=== PATIENT | male | born 1990 | race Caucasian/White ===

== ENCOUNTER 2017-03-22 07:23 | Inpatient (IN) | payer MEDICAID ==
[2017-03-22] MEDS ORDERED: Dextrose 50% 50 mL Abboject IVP ONE (07:32)
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
[2017-03-22] MEDS ORDERED: Dextrose 50% 50 mL Abboject IVP STA (07:37)
[2017-03-22] MEDS ORDERED: D5-0.9NS w/KCL 20mEq 1,000 ML IV ONE ×2 (07:39→07:40)
[2017-03-22 08:15] LABS: ALB/GLOB RATIO 1.5 (1.0-1.8); ALKALINE PHOSPHATASE 46 U/L (34-104); ANION GAP 7.6 (7.0-16.0); BILIRUBIN,TOTAL 0.5 mg/dL (0.3-1.0); BUN - UREA NITROGEN 14 mg/dL (7-25); BUN/CREATININE RATIO 17.5; CALCIUM SERUM 8.3 mg/dL (8.6-10.3); CHLORIDE 105 mEq/L (98-107); CREATININE - SERUM 0.8 mg/dL (0.7-1.3); GLUCOSE 130 mg/dL (70-105); POTASSIUM SERUM 3.6 mEq/L (3.5-5.1); SGOT 48 U/L (13-39); SGPT/ALT 40 U/L (7-52); SODIUM SERUM 137 mEq/L (136-145)
[2017-03-22 08:26] LABS: ACETAMINOPHEN < 10.0 ug/mL (10.0-30.0)
[2017-03-22 08:33] LABS: % BASOPHILS 0.1 % (0.0-2.0); % EOSINOPHILS 0.4 % (0.0-5.0); % NEUTROPHILS 85.5 % (40.0-80.0); HEMOGLOBIN 14.2 gm/dL (12-16); MEAN CELL VOLUME 97.4 fl (80-99); MEAN CORPUSCULAR HEMOGLOBIN 32.9 pg (26.0-30.0); MEAN CORPUSCULAR HGB CONC 33.8 pg (28.0-36.0); MEAN PLATELET VOLUME 7.9 fl; NEUTROPHILE ABSOLUTE 9.8 Th/cmm (1.8-8.0); PLATELET COUNT 354 Th/cmm (150-400); RED BLOOD COUNT 4.31 Mil/cmm (4.30-5.70); RED CELL DISTRIBUTION WIDTH 12.6 % (11.5-20.0); WHITE BLOOD COUNT 11.4 Th/cmm (4.8-10.8)
[2017-03-22 09:17] LABS: URINE BILIRUBIN NEGATIVE (NEGATIVE); URINE BLOOD NEGATIVE (NEGATIVE); URINE GLUCOSE (UA) 100 mg/dL (NEGATIVE); URINE KETONE NEGATIVE (NEGATIVE); URINE PH 5.5 (4.6 - 8.0); URINE PROTEIN NEGATIVE (NEGATIVE); URINE UROBILINOGEN 0.2 E.U./dL (0.2 - 1.0)
[2017-03-22 09:28] LABS: URINE COLOR YELLOW
[2017-03-22 09:30] LABS: AMPHETAMINE URINE POSITIVE (NEGATIVE); BARBITURATES URINE NEGATIVE (NEGATIVE)
[2017-03-22 09:31] LABS: METHADONE URINE NEGATIVE (NEGATIVE)
[2017-03-22 09:34] LABS: URINE BACTERIA NONE SEEN /hpf (NONE SEEN); URINE EPITHELIAL CELLS RARE /lpf (FEW); URINE RBC 0-2 /hpf (0-5); URINE WBC NONE SEEN /hpf (0-5)
--- NOTE | 2017-03-22 09:34 | Diagnostic Imaging Report ---
Lumbar spine (3 views) HISTORY: Pain Alignment is normal. Disc spaces are maintained. No focal lesions. Minimal anterior wedging involves the bodies of T11 and T12. IMPRESSION: 1. No acute abnormalities 2. Minimal anterior wedging involving the bodies of T11 and T12.
[2017-03-22] MEDS: Dextrose 10% 1,000 ML IV SCH (23:03)
[2017-03-23 00:01] VITALS: BP 123/72
[2017-03-23] MEDS: INSULIN ASPART SLIDING SCALE 100 UNITS/ML UNIT SUBQ SCH ×6 (01:56→21:23)
[2017-03-23 05:41] LABS: % BASOPHILS 0.3 % (0.0-2.0); % EOSINOPHILS 6.7 % (0.0-5.0); % LYMPHOCYTES 29.7 % (20.0-50.0); % NEUTROPHILS 54.3 % (40.0-80.0); HEMATOCRIT 42.3 % (41.0-60); HEMOGLOBIN 14.2 gm/dL (12-16); MEAN CELL VOLUME 97.3 fl (80-99); MEAN CORPUSCULAR HEMOGLOBIN 32.8 pg (26.0-30.0); MEAN CORPUSCULAR HGB CONC 33.7 pg (28.0-36.0); NEUTROPHILE ABSOLUTE 4.5 Th/cmm (1.8-8.0); PLATELET COUNT 307 Th/cmm (150-400); RED BLOOD COUNT 4.35 Mil/cmm (4.30-5.70); RED CELL DISTRIBUTION WIDTH 12.6 % (11.5-20.0)
[2017-03-23 05:43] LABS: WHITE BLOOD COUNT 8.4 Th/cmm (4.8-10.8)
[2017-03-23 05:53] LABS: ANION GAP 8.7 (7.0-16.0); BUN - UREA NITROGEN 10 mg/dL (7-25); BUN/CREATININE RATIO 11.1; CALCIUM SERUM 8.6 mg/dL (8.6-10.3); CARBON DIOXIDE 27.3 mEq/L (21.0-31.0); CHLORIDE 104 mEq/L (98-107); CREATININE - SERUM 0.9 mg/dL (0.7-1.3); GLUCOSE 143 mg/dL (70-105); MAGNESIUM 1.8 mg/dL (1.9-2.7); SODIUM SERUM 136 mEq/L (136-145)
[2017-03-23] MEDS ORDERED: INSULIN ASPART SLIDING SCALE 100 UNITS/ML UNIT SUBQ SCH (07:30)
[2017-03-23] MEDS ORDERED: Influenza Vaccine 0.5 mL Syr IM ONE (10:00)
[2017-03-23] MEDS: Dextrose 10% 1,000 ML IV SCH (10:43)
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
[2017-03-23] MEDS ORDERED: Mag Sulfate 2gm/50mL Premix 2 GM/50 ML BAG IV ONE (18:42)
--- NOTE | 2017-03-23 20:49 | History & Physical ---
ADMIT DATE: 03/23/2017 REQUESTING PHYSICIAN: Dr. De La Torre. REASON FOR CONSULTATION: Suicidal gesture. HISTORY OF PRESENT ILLNESS: This patient is a 26-year-old male, currently homeless. Information obtained by directly interviewing the patient as well as reviewing the admission papers as per the information, the patient is reported to have tried to overdose on insulin along with the methamphetamine and the patient is reported to has been brought to the Emergency Room after ____. The patient is reported to have been living in his car and the patient is stating that he does not known. How, he can care for himself and he wanted to end it and hence the patient has been evaluated by the staff and was placed on 5150 as being a danger to self and being gravely disabled and admitted over here for stabilization, tried to interview the patient, but patient has been uncooperative and has been turning to other side, giving very little information what led to his suicidal gestures. PAST PSYCHIATRIC HISTORY: Details are not known. MEDICAL HISTORY: Dr. Garcia is on the case. SUBSTANCE ABUSE HISTORY: The patient has been abusing methamphetamine. Details about other drugs use are not known. LEGAL PROBLEMS: None at this time. STRENGTHS AND ASSETS: The patient seems to be motivated. MENTAL EXAMINATION: The patient is a 26-year-old well built, superficially cooperative. Eye contact is poor. Mood is noted to be irritable. Affect is constricted. Insight and judgment at this time are noted to be still impaired. Impulse control seems to be poor. Coping skills are also noted to be poor. The patient is not providing much of information to me at this time, we will try to get more information. The patient gets more cooperative. The patient at this time is currently maintained on Haldol and Benadryl as needed and the social work case manager is going to be involved in helping the patient with the placement. DIAGNOSTIC IMPRESSION: 1. Depressive disorder, not otherwise specified. 2. Methamphetamine abuse. 3. As per Dr. Garcia. IMMEDIATE TREATMENT PLAN: The patient is going to be continued on the Haldol on a p.r.n. basis. ASSESSMENT: The patient is going to be closely monitored. Once stabilized is going to be discharged to [facility] to be followed up on an outpatient basis. JOB# [id number]
[2017-03-24] MEDS: INSULIN ASPART SLIDING SCALE 100 UNITS/ML UNIT SUBQ SCH ×3 (00:40→08:17)
[2017-03-24] MEDS: Dextrose 10% 1,000 ML IV SCH (03:36)
[2017-03-24 05:24] LABS: % BASOPHILS 0.6 % (0.0-2.0); % EOSINOPHILS 6.2 % (0.0-5.0); % LYMPHOCYTES 22.1 % (20.0-50.0); % MONOCYTES 8.7 % (2.0-10.0); % NEUTROPHILS 62.4 % (40.0-80.0); HEMATOCRIT 43.8 % (41.0-60); HEMOGLOBIN 14.8 gm/dL (12-16); MEAN CELL VOLUME 96.1 fl (80-99); MEAN CORPUSCULAR HEMOGLOBIN 32.4 pg (26.0-30.0); MEAN CORPUSCULAR HGB CONC 33.7 pg (28.0-36.0); MEAN PLATELET VOLUME 7.9 fl; NEUTROPHILE ABSOLUTE 5.7 Th/cmm (1.8-8.0); PLATELET COUNT 330 Th/cmm (150-400); RED BLOOD COUNT 4.56 Mil/cmm (4.30-5.70); RED CELL DISTRIBUTION WIDTH 12.6 % (11.5-20.0); WHITE BLOOD COUNT 9.3 Th/cmm (4.8-10.8)
[2017-03-24 05:57] LABS: ALB/GLOB RATIO 1.4 (1.0-1.8); ALKALINE PHOSPHATASE 68 U/L (34-104); ANION GAP 9.5 (7.0-16.0); BILIRUBIN,TOTAL 0.8 mg/dL (0.3-1.0); BUN - UREA NITROGEN 22 mg/dL (7-25); CALCIUM SERUM 8.7 mg/dL (8.6-10.3); CARBON DIOXIDE 25.9 mEq/L (21.0-31.0); CHLORIDE 102 mEq/L (98-107); GLUCOSE 270 mg/dL (70-105); MAGNESIUM 1.9 mg/dL (1.9-2.7); POTASSIUM SERUM 4.4 mEq/L (3.5-5.1); SGOT 20 U/L (13-39); SGPT/ALT 31 U/L (7-52); SODIUM SERUM 133 mEq/L (136-145)
[2017-03-24] MEDS ORDERED: Insulin Detemir 100 units/mL 10mL Vial SUBQ SCH ×2 (12:00→15:00)
[2017-03-24] MEDS: INSULIN ASPART, RECOMBINANT 100 UNITS/ML SUBQ SCH ×3 (12:38→22:07)
[2017-03-25 05:45] LABS: % EOSINOPHILS 5.6 % (0.0-5.0); % LYMPHOCYTES 26.7 % (20.0-50.0); % MONOCYTES 9.9 % (2.0-10.0); % NEUTROPHILS 56.8 % (40.0-80.0); HEMATOCRIT 46.4 % (41.0-60); HEMOGLOBIN 15.9 gm/dL (12-16); MEAN CELL VOLUME 95.8 fl (80-99); MEAN CORPUSCULAR HEMOGLOBIN 32.8 pg (26.0-30.0); MEAN CORPUSCULAR HGB CONC 34.2 pg (28.0-36.0); MEAN PLATELET VOLUME 7.5 fl; NEUTROPHILE ABSOLUTE 4.3 Th/cmm (1.8-8.0); PLATELET COUNT 363 Th/cmm (150-400); RED BLOOD COUNT 4.84 Mil/cmm (4.30-5.70); RED CELL DISTRIBUTION WIDTH 12.5 % (11.5-20.0); WHITE BLOOD COUNT 7.6 Th/cmm (4.8-10.8)
[2017-03-25 06:09] LABS: ANION GAP 7.8 (7.0-16.0); BUN - UREA NITROGEN 25 mg/dL (7-25); CALCIUM SERUM 9.1 mg/dL (8.6-10.3); CARBON DIOXIDE 30.5 mEq/L (21.0-31.0); CHLORIDE 102 mEq/L (98-107); GLUCOSE 96 mg/dL (70-105); POTASSIUM SERUM 4.3 mEq/L (3.5-5.1); SODIUM SERUM 136 mEq/L (136-145)
[2017-03-25] MEDS: INSULIN ASPART, RECOMBINANT 100 UNITS/ML SUBQ SCH (06:37)
[2017-03-25] MEDS ORDERED: Insulin Detemir 100 units/mL 10mL Vial SUBQ SCH (21:00)
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
== END 2017-03-25 10:15 | disposition left against medical advice (07) | DRG 420 ==
LOC: ER 07:23 → TELE 21:45 → MSI 03-24 14:51
PROVIDERS: ADMIT Internal Medicine; ATTEND Internal Medicine
DX: E11.649 Type 2 diabetes mellitus with hypoglycemia without coma (principal); G93.41 Metabolic encephalopathy; R45.851 Suicidal ideations; F15.10 Other stimulant abuse, uncomplicated; F32.9 Major depressive disorder, single episode, unspecified; Z59.0 Homelessness; Z79.4 Long term (current) use of insulin
CPT/HCPCS: 36415-UA; 72110-TC; 80048-TC; 80053-TC; 80307; 80320-TC; 80329-TC; 81001-TC; 82948-90; 83036-90; 83735-TC; 84443-TC; 85025-TC; 93005; 96374; J1815; J3475; J7799; Z7610

== ENCOUNTER 2017-05-29 19:02 | Emergency (ER) | payer MEDICAID ==
[2017-05-29] MEDS ORDERED: INSULIN HUMAN REGULAR 100 UNITS/ML UNIT SUBQ ONE (19:20)
--- NOTE | 2017-05-29 19:25 | ED Physician Chart ---
ED Chief Complaint/HPI - Patient Information Date Seen:: 05/29/17 Time Seen:: 19:24 Chief Complaint:: Insulin overdose History of Present Illness:: 26 yo male with DM type I, was brought to ER by ambulance. The patient stated that he accidentally overdosed Lantus insulin by about 20 units. He then started drinking large amount of orange juice to try to compensate for possible hypoglycemia. He then began vomiting. He called 911 and asked to be taken to ER. Here at ER, he is alert with agitation. Blood glucose was 101 Allergies:: Allergies Allergy/AdvReac Type Severity Reaction Status Date / Time No Known Allergies Allergy Verified 03/23/17 18:41 Vitals:: Vital Signs - 8 hr 05/29/17 19:13 Temp 97.9 F HR 100 RR 16 BP 118/74 O2 Sat % 96 ED Review of Systems - Review of Systems General/Constitutional: No fever, No chills Skin: No skin lesions Head: No headache Eyes: No loss of vision ENT: No nasal drainage Neck: No neck pain Cardio Vascular: No chest pain Pulmonary: No SOB GI: No nausea, No vomiting Musculoskeletal: No bone or joint pain ED Past Medical History - Past Medical History Past Medical History: DM (Type I) Social History: Smoker, No Alcohol, No Drug Use Surgical History: None Family Medical History - Family Member Mother History Unknown: Yes ED Physical Exam - Physical Examination General/Constitutional: Awake Other Gen/Cons comments:: Verbally aggressive, mild tremor in BUE Head: Atraumatic Eyes: PERRL, EOMI Skin: No ecchymosis ENMT: Nasal exam nl Neck: No nuchal rigidity Respiratory: Clear to Auscultation, No Wheeze/Rhonchi/Rales Cardio Vascular: RRR, No murmur, gallop, rubs, NL S1 S2 GI: No tenderness/rebounding/guarding Extremities: normal strength in all extremities Neuro/Psych: No focal deficits ED Assessment - Assessment General Assessment: DM type I Insulin overdose Critical Care Time: 30 min Excludes all billable procedures: Yes This condition life threatening/high prob of deterioration: No Assessment/Comments:: Accu-Check blood glucose level, q4h Insulin sliding scale, low dose, prn The patient left AMA and signed the AMA form. The patient was informed about developing potential complications including hypoglycemia, altered mental status or . ED Septic Shock - . Is Septic Shock (SBP<90, OR Lactate>4 mmol\L) present?: No - <6hrs of presentation: Vital Signs: Vital Signs - 8 hr 05/29/17 19:13 Temp 97.9 F HR 100 RR 16 BP 118/74 O2 Sat % 96 ED Reassessment (Disposition) - Reassessment Reassessment Condition:: Improved ED Discharge Plan - Patient Disposition Admit/Discharge/Transfer: AGAINST MEDICAL ADVICE
[2017-05-29 19:28] LABS: % BASOPHILS 0.8 % (0.0-2.0); % EOSINOPHILS 3.7 % (0.0-5.0); % LYMPHOCYTES 21.9 % (20.0-50.0); % MONOCYTES 9.5 % (2.0-10.0); % NEUTROPHILS 64.1 % (40.0-80.0); HEMOGLOBIN 14.2 gm/dL (12-16); MEAN CELL VOLUME 96.8 fl (80-99); MEAN CORPUSCULAR HEMOGLOBIN 33.5 pg (26.0-30.0); MEAN CORPUSCULAR HGB CONC 34.6 pg (28.0-36.0); MEAN PLATELET VOLUME 7.4 fl; NEUTROPHILE ABSOLUTE 5.6 Th/cmm (1.8-8.0); RED BLOOD COUNT 4.23 Mil/cmm (4.30-5.70); RED CELL DISTRIBUTION WIDTH 12.1 % (11.5-20.0); WHITE BLOOD COUNT 8.7 Th/cmm (4.8-10.8)
[2017-05-29 19:29] LABS: PLATELET COUNT 523 Th/cmm (150-400)
[2017-05-29] MEDS ORDERED: INSULIN HUMAN REGULAR 100 UNITS/ML UNIT SUBQ SCH ×2 (19:30→21:15)
[2017-05-29 19:48] LABS: ALB/GLOB RATIO 1.5 (1.0-1.8); ALKALINE PHOSPHATASE 70 U/L (34-104); ANION GAP 10.7 (7.0-16.0); BILIRUBIN,TOTAL 0.9 mg/dL (0.3-1.0); BUN - UREA NITROGEN 15 mg/dL (7-25); BUN/CREATININE RATIO 16.7; CALCIUM SERUM 9.2 mg/dL (8.6-10.3); CARBON DIOXIDE 26.9 mEq/L (21.0-31.0); CHLORIDE 104 mEq/L (98-107); CREATININE - SERUM 0.9 mg/dL (0.7-1.3); GLUCOSE 87 mg/dL (70-105); POTASSIUM SERUM 3.6 mEq/L (3.5-5.1); SGOT 38 U/L (13-39); SGPT/ALT 45 U/L (7-52); SODIUM SERUM 138 mEq/L (136-145)
[2017-05-29] MEDS ORDERED: Dextrose 50% 50 mL Abboject IVP STA (20:54)
== END 2017-05-29 21:35 | disposition left against medical advice (07) ==
LOC: ER 19:02
DX: T85.694A Other mechanical complication of insulin pump, initial encounter (principal); T38.3X1A Poisoning by insulin and oral hypoglycemic [antidiabetic] drugs, accidental (unintentional), initial encounter; E10.9 Type 1 diabetes mellitus without complications
CPT/HCPCS: 36415-UA; 80053-TC; 82948-90; 83036-90; 85025-TC; Z7502

== ENCOUNTER 2017-09-30 07:20 | Emergency (ER) | payer MEDICAID ==
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
== END 2017-09-30 08:10 | disposition still patient (30) ==
LOC: ER 07:20
DX: S00.01XA Abrasion of scalp, initial encounter (principal); S00.81XA Abrasion of other part of head, initial encounter; X58.XXXA Exposure to other specified factors, initial encounter; Z02.89 Encounter for other administrative examinations; Y93.89 Activity, other specified; Y92.89 Other specified places as the place of occurrence of the external cause; Y99.8 Other external cause status
CPT/HCPCS: 82948-90; Z7502

== ENCOUNTER 2018-01-17 04:57 | Emergency (ER) | payer MEDICAID ==
[2018-01-17] MEDS ORDERED: Acetaminophen 500 MG TAB PO ONE (05:24)
[2018-01-17] MEDS ORDERED: Acetaminophen 500 MG TAB ONE (05:36)
[2018-01-17] MEDS ORDERED: Sodium Chloride 0.9% 1,000 ML IV ONE ×2 (05:38→06:54)
--- NOTE | 2018-01-17 05:40 | ED Physician Chart ---
ED Chief Complaint/HPI - Patient Information Date Seen:: 01/17/18 Time Seen:: 05:15 Chief Complaint:: bilateral foot pain History of Present Illness:: THIS IS A 27 YO MALE DIABETIC WHO HAS BEEN HERE MULTIPLE TIMES. THIS MORNING HE IS CONCERNED ABOUT HIS FOOT PAIN AND STATES THAT HE IS HOMELESS AND DENIES USING DRUGS. HE DENIES ALL OTHER MEDICAL PROBLEMS EXCEPT FOR BILATERAL FOOT PAIN. HE STATES THAT HE HAS HAD A RECENT TETANUS SHOT. Allergies:: Allergies Allergy/AdvReac Type Severity Reaction Status Date / Time No Known Allergies Allergy Verified 01/17/18 05:06 Vitals:: Vital Signs - 8 hr 01/17/18 05:00 Temp 98.1 F HR 87 RR 20 BP 128/81 O2 Sat % 98 Historian:: Patient Review:: Old Chart Reviewed ED Review of Systems - Review of Systems General/Constitutional: No fever, No chills, No weight loss, No weakness, No diaphoresis, No edema, No loss of appetite Skin: No skin lesions, No rash, No bruising Head: No headache, No light-headedness Eyes: No loss of vision, No pain, No diplopia ENT: No earache, No nasal drainage, No sore throat, No tinnitus Neck: No neck pain, No swelling, No thyromegaly, No stiffness, No mass noted Cardio Vascular: No chest pain, No palpitations, No PND, No orthopnea, No edema Pulmonary: No SOB, No cough, No sputum, No wheezing GI: No nausea, No vomiting, No diarrhea, No pain, No melena, No hematochezia, No constipation, No hematemesis G/U: No dysuria, No frequency, No hematuria Musculoskeletal: No bone or joint pain, No back pain, No muscle pain, Other ( BILATERAL FOOT PAIN) Endocrine: No polyuria, No polydipsia Psychiatric: No prior psych history, No depression, No anxiety, No suicidal ideation Hematopoietic: No bruising, No lymphadenopathy Allergic/Immuno: No urticaria, No angioedema Neurological: No syncope, No focal symptoms, No weakness, No paresthesia, No headache, No seizure, No dizziness, No confusion, No vertigo ED Past Medical History - Past Medical History Obtainable: Yes Past Medical History: DM, Other (MENTAL DISORDER, DRUG ABUSE) Family History: None Social History: Non Smoker, No Alcohol, Illicit Drug Use, Homeless Surgical History: other (SUB MENTUM GLAND SURGERY) Psychiatricy History: Depression Medication: Reviewed Family Medical History - Family Member Mother History Unknown: Yes Ethnicity: Non- Living Status: Still Living Hx Family Cancer: No Hx Family Coronary Artery Disease: No Hx Family Congestive Heart Failure: No Hx Family Hypertension: No Hx Family Stroke: No Hx Family Diabetes: No Hx Family Seizures: No Hx Family Dementia: No Hx Family AIDS: No Hx Family HIV: No Hx Family COPD: No Hx Family Hepatitis: No Hx Family Psychiatric Problems: No Hx Family Tuberculosis: No ED Physical Exam - Physical Examination General/Constitutional: Awake, Well-developed, well-nourished, Alert, No distress, GCS 15, Non-toxic appearing, Ambulatory Head: Atraumatic Eyes: Lids, conjuctiva normal, PERRL, EOMI Skin: Nl inspection, No rash, No skin lesions, No ecchymosis, Well hydrated, No lymphadenopathy ENMT: External ears, nose nl, Nasal exam nl, Lips, teeth, gums nl Neck: Nontender, Full ROM w/o pain, No JVD, No nuchal rigidity, No bruit, No mass, No stridor Respiratory: Nl effort/Exclusion, Clear to Auscultation, No Wheeze/Rhonchi/Rales Cardio Vascular: RRR, No murmur, gallop, rubs, NL S1 S2 GI: No tenderness/rebounding/guarding, No organomegaly, No hernia, Normal BS's, Nondistended, No mass/bruits, No McBurney tenderness : No CVA tenderness Extremities: No tenderness or effusion, Full ROM, normal strength in all extremities, No edema, Normal digits & nails Other Extremities comments:: RIGHT FOOT HAS AN OPEN ABRASION ON THE BIG TOE THERE IS NO EDEMA OF THE FEET. THERE ARE MULTIPLE INSECT BITE OVER BOTH LOWER LEGS. Neuro/Psych: Alert/oriented, DTR's symmetric, Normal sensory exam, Normal motor strength, Judgement/insight normal, Mood normal, Normal gait, No focal deficits Misc: Normal back, No paraspinal tenderness ED Labs/Radiology/EKG Results - Lab Results Results: Abnormal Lab Results 01/17/18 01/17/18 01/17/18 05:10 05:10 05:30 WBC 8.8 RBC 4.17 L Hgb 13.7 Hct 40.2 L MCV 96.4 MCH 33.0 H MCHC Differential 34.2 RDW 13.7 Plt Count 317 MPV 8.1 Neutrophils % 77.8 Lymphocytes % 11.8 L Monocytes % 6.9 Eosinophils % 2.3 Basophils % 1.2 Sodium Potassium Chloride Carbon Dioxide Anion Gap BUN Creatinine Est GFR ( Amer) Est GFR (Non-Af Amer) BUN/Creatinine Ratio Glucose Calcium Total Bilirubin AST ALT Alkaline Phosphatase Troponin I Total Protein Albumin Globulin Albumin/Globulin Ratio Urine Source CLEAN C Urine Color YELLOW Urine Clarity CLEAR Urine pH 7.0 Ur Specific [place] <= 1.005 Urine Protein NEGATIVE Urine Glucose (UA) >=1000 H Urine Ketones NEGATIVE Urine Blood NEGATIVE Urine Nitrate NEGATIVE Urine Bilirubin NEGATIVE Urine Urobilinogen 0.2 Ur Leukocyte Esterase NEGATIVE Urine RBC 0-2 H Urine WBC 0-2 Ur Epithelial Cells OCCASIONAL Urine Bacteria OCCASIONAL Urine Opiates Screen NEGATIVE Urine Methadone Screen NEGATIVE Ur Barbiturates Screen NEGATIVE Ur Tricyclics Screen NEGATIVE Ur Phencyclidine Scrn NEGATIVE Amphetamines Screen NEGATIVE U Methamphetamines Scrn POSITIVE H U Benzodiazepines Scrn NEGATIVE U Cocaine Metab Screen NEGATIVE U Cannabinoids Screen NEGATIVE Ethyl Alcohol 01/17/18 01/17/18 01/17/18 05:30 05:30 05:30 WBC RBC Hgb Hct MCV MCH MCHC Differential RDW Plt Count MPV Neutrophils % Lymphocytes % Monocytes % Eosinophils % Basophils % Sodium 125 L Potassium 4.6 Chloride 89 L Carbon Dioxide 25.3 Anion Gap 15.3 BUN 22 Creatinine 1.2 Est GFR ( Amer) > 60.0 Est GFR (Non-Af Amer) > 60.0 BUN/Creatinine Ratio 18.3 Glucose 749 H* Calcium 9.1 Total Bilirubin 2.6 H AST 428 H ALT 184 H Alkaline Phosphatase 141 H Troponin I 0.01 Total Protein 6.8 Albumin 4.2 Globulin 2.6 Albumin/Globulin Ratio 1.6 Urine Source Urine Color Urine Clarity Urine pH Ur Specific [place] Urine Protein Urine Glucose (UA) Urine Ketones Urine Blood Urine Nitrate Urine Bilirubin Urine Urobilinogen Ur Leukocyte Esterase Urine RBC Urine WBC Ur Epithelial Cells Urine Bacteria Urine Opiates Screen Urine Methadone Screen Ur Barbiturates Screen Ur Tricyclics Screen Ur Phencyclidine Scrn Amphetamines Screen U Methamphetamines Scrn U Benzodiazepines Scrn U Cocaine Metab Screen U Cannabinoids Screen Ethyl Alcohol < 10 ED Assessment - Assessment General Assessment: DRUG ABUSE DIABETES MELLITUS ABRASION OF THE RIGHT BIG TOE ED Septic Shock - . Is Septic Shock (SBP<90, OR Lactate>4 mmol\L) present?: No - <6hrs of presentation: Vital Signs: Vital Signs - 8 hr 01/17/18 05:00 Temp 98.1 F HR 87 RR 20 BP 128/81 O2 Sat % 98 ED Reassessment (Disposition) - Reassessment Reassessment Condition:: Improved - Diagnosis Diagnosis:: DIABETES MELLITUS DRUG ABUSE (METH) RIGHT BIG TOE ABRASION - Aftercare/Follow up Instructions Aftercare/Follow-Up Instructions:: Counseled pt regarding lab results/diagnosis & need follow up, Refer to Discharge Instructions, Counseled pt & family regarding lab results/diagnosis & need follow up - Patient Disposition Discharge/Transfer:: Home Condition at Disposition:: Improved ED Discharge Plan - Patient Disposition Admit/Discharge/Transfer: PT DISCHARGED HOME Condition at Disposition: Improved
[2018-01-17] MEDS ORDERED: INSULIN HUMAN REGULAR 100 UNITS/ML UNIT SUBQ ONE ×2 (05:43)
[2018-01-17] MEDS ORDERED: Potassium Chloride Elixir 20 mEq /15 mL UDC PO ONE (05:47)
[2018-01-17 05:50] LABS: URINE MICROSCOPIC INDICATED? YES; URINE SOURCE CLEAN C
[2018-01-17] MEDS ORDERED: INSULIN HUMAN REGULAR 100 UNITS/ML UNIT ONE ×3 (05:58→08:22)
[2018-01-17 06:03] LABS: ALB/GLOB RATIO 1.6 (1.0-1.8); ALBUMIN 4.2 gm/dL (4.2-5.5); ALKALINE PHOSPHATASE 141 U/L (34-104); ANION GAP 15.3 (7.0-16.0); BILIRUBIN,TOTAL 2.6 mg/dL (0.3-1.0); BUN - UREA NITROGEN 22 mg/dL (7-25); CALCIUM SERUM 9.1 mg/dL (8.6-10.3); CARBON DIOXIDE 25.3 mEq/L (21.0-31.0); CHLORIDE 89 mEq/L (98-107); CREATININE - SERUM 1.2 mg/dL (0.7-1.3); GFR AFRICAN-AMERICAN > 60.0 ml/min (>90); GFR NON AFRICAN-AMERICAN > 60.0 ml/min; POTASSIUM SERUM 4.6 mEq/L (3.5-5.1); SGOT 428 U/L (13-39); SGPT/ALT 184 U/L (7-52); SODIUM SERUM 125 mEq/L (136-145); TOTAL PROTEIN,SERUM 6.8 gm/dL (6.0-8.3)
[2018-01-17 06:06] LABS: URINE BILIRUBIN NEGATIVE (NEGATIVE); URINE BLOOD NEGATIVE (NEGATIVE); URINE GLUCOSE (UA) >=1000 mg/dL (NEGATIVE); URINE KETONE NEGATIVE (NEGATIVE); URINE LEUKOCYTE ESTERASE NEGATIVE (NEGATIVE); URINE NITRATE NEGATIVE (NEGATIVE); URINE PROTEIN NEGATIVE (NEGATIVE); URINE UROBILINOGEN 0.2 E.U./dL (0.2 - 1.0)
[2018-01-17 06:08] LABS: URINE CLARITY CLEAR (CLEAR); URINE COLOR YELLOW
[2018-01-17 06:11] LABS: URINE BACTERIA OCCASIONAL /hpf (NONE SEEN); URINE EPITHELIAL CELLS OCCASIONAL /lpf (FEW); URINE RBC 0-2 /hpf (0-5); URINE WBC 0-2 /hpf (0-5)
[2018-01-17 06:13] LABS: GLUCOSE 749 mg/dL (70-105)
[2018-01-17 06:19] LABS: AMPHETAMINE URINE NEGATIVE (NEGATIVE); BARBITURATES URINE NEGATIVE (NEGATIVE); BENZODIAZEPINES QUAL URINE NEGATIVE (NEGATIVE); CANNABINOID THC NEGATIVE (NEGATIVE); COCAINE METABOLITE QUAL URINE NEGATIVE (NEGATIVE); METHADONE URINE NEGATIVE (NEGATIVE); METHAMPHETAMINES QUAL URINE POSITIVE (NEGATIVE); OPIATES (MORPHINE) QUAL. URINE NEGATIVE (NEGATIVE); PHENCYCLIDINE (PCP) URINE NEGATIVE (NEGATIVE); TRICYCLICS (TCA) QUAL. URINE NEGATIVE (NEGATIVE)
[2018-01-17 06:26] LABS: % BASOPHILS 1.2 % (0.0-2.0); % EOSINOPHILS 2.3 % (0.0-5.0); % LYMPHOCYTES 11.8 % (20.0-50.0); % MONOCYTES 6.9 % (2.0-10.0); % NEUTROPHILS 77.8 % (40.0-80.0); BASOPHILE ABSOLUTE 0.1 Th/cumm (0-0.2); EOSINOPHILE ABSOLUTE 0.2 Th/cmm (0.1-0.4); HEMATOCRIT 40.2 % (41.0-60); HEMOGLOBIN 13.7 gm/dL (12-16); MEAN CELL VOLUME 96.4 fl (80-99); MEAN CORPUSCULAR HGB CONC 34.2 pg (28.0-36.0); MEAN PLATELET VOLUME 8.1 fl; MONOCYTE ABSOLUTE 0.6 Th/cmm (0.3-1.0); NEUTROPHILE ABSOLUTE 6.9 Th/cmm (1.8-8.0); PLATELET COUNT 317 Th/cmm (150-400); RED BLOOD COUNT 4.17 Mil/cmm (4.30-5.70); RED CELL DISTRIBUTION WIDTH 13.7 % (11.5-20.0); WHITE BLOOD COUNT 8.8 Th/cmm (4.8-10.8)
[2018-01-17] MEDS ORDERED: INSULIN HUMAN REGULAR 100 UNITS/ML UNIT IV ONE (08:17)
[2018-01-17] MEDS ORDERED: Potassium Chloride Elixir 20 mEq /15 mL UDC ONE (08:25)
[2018-01-19 21:45] LABS: A1C % 12.5 % (4.0-6.0)
== END 2018-01-17 09:00 | disposition home or self-care (01) ==
LOC: ER 04:57
DX: E11.9 Type 2 diabetes mellitus without complications (principal); F11.10 Opioid abuse, uncomplicated; S90.411A Abrasion, right great toe, initial encounter; F32.9 Major depressive disorder, single episode, unspecified; Z59.0 Homelessness; X58.XXXA Exposure to other specified factors, initial encounter; Y93.89 Activity, other specified; Y92.89 Other specified places as the place of occurrence of the external cause; Y99.8 Other external cause status
CPT/HCPCS: 99284; 96372 ×2; 96374; 96375; 84484; 36415; 36416 ×4; 82948 ×4; 80307; 85025; 81001; 80320; 83036; 80053; 87040 ×2; J0696; J1815; J7030; Z7502; Z7610

== ENCOUNTER 2018-05-17 17:38 | Emergency (ER) | payer MEDICAID ==
[2018-05-17] MEDS ORDERED: Sodium Chloride 0.9% 1,000 ML IV ONE ×2 (17:51)
[2018-05-17 18:00] LABS: % BASOPHILS 1.6 % (0.0-2.0); % EOSINOPHILS 2.3 % (0.0-5.0); % LYMPHOCYTES 29.7 % (20.0-50.0); % MONOCYTES 8.1 % (2.0-10.0); % NEUTROPHILS 58.3 % (40.0-80.0); BASOPHILE ABSOLUTE 0.1 Th/cumm (0-0.2); EOSINOPHILE ABSOLUTE 0.1 Th/cmm (0.1-0.4); HEMATOCRIT 36.7 % (41.0-60); HEMOGLOBIN 12.5 gm/dL (12-16); LYMPHOCYTE ABSOLUTE 1.9 Th/cmm (1.5-3.0); MEAN CELL VOLUME 91.8 fl (80-99); MEAN CORPUSCULAR HEMOGLOBIN 31.3 pg (26.0-30.0); MEAN CORPUSCULAR HGB CONC 34.1 pg (28.0-36.0); MEAN PLATELET VOLUME 7.4 fl; MONOCYTE ABSOLUTE 0.5 Th/cmm (0.3-1.0); NEUTROPHILE ABSOLUTE 3.8 Th/cmm (1.8-8.0); PLATELET COUNT 458 Th/cmm (150-400); RED CELL DISTRIBUTION WIDTH 13.7 % (11.5-20.0); WHITE BLOOD COUNT 6.4 Th/cmm (4.8-10.8)
[2018-05-17] MEDS ORDERED: INSULIN HUMAN REGULAR 100 UNITS/ML UNIT IVP ONE (18:00)
[2018-05-17 18:18] LABS: ALB/GLOB RATIO 1.5 (1.0-1.8); ALKALINE PHOSPHATASE 80 U/L (34-104); BILIRUBIN,TOTAL 0.8 mg/dL (0.3-1.0); BUN - UREA NITROGEN 21 mg/dL (7-25); CALCIUM SERUM 9.4 mg/dL (8.6-10.3); CARBON DIOXIDE 25.3 mEq/L (21.0-31.0); CHLORIDE 95 mEq/L (98-107); GFR AFRICAN-AMERICAN > 60.0 ml/min (>90); GFR NON AFRICAN-AMERICAN > 60.0 ml/min; PHOSPHOROUS 3.4 mg/dL (2.5-5.0); POTASSIUM SERUM 4.3 mEq/L (3.5-5.1); SGOT 68 U/L (13-39); SGPT/ALT 53 U/L (7-52); SODIUM SERUM 133 mEq/L (136-145); TOTAL PROTEIN,SERUM 6.7 gm/dL (6.0-8.3)
[2018-05-17] MEDS ORDERED: INSULIN HUMAN REGULAR 100 UNITS/ML UNIT ONE (18:18)
[2018-05-17 18:19] LABS: GLUCOSE 651 mg/dL (70-105)
--- NOTE | 2018-05-17 19:05 | ED Physician Chart ---
ED Chief Complaint/HPI - Patient Information Date Seen:: 05/17/18 Time Seen:: 18:00 Chief Complaint:: elevated blood sugar History of Present Illness:: elevated blood sugar in a noncompliant insulin dependent diabetic. no other complaints admits to methamphetamine and marijuana usage prior to presentation. Allergies:: Allergies Allergy/AdvReac Type Severity Reaction Status Date / Time No Known Allergies Allergy Verified 01/17/18 05:06 Vitals:: Vital Signs - 8 hr 05/17/18 18:00 Temp 99.5 F HR 97 RR 18 BP 158/96 O2 Sat % 96 Historian:: Patient, EMS Review:: Nurse's Note Reviewed ED Review of Systems - Review of Systems General/Constitutional: No fever, No chills, No weight loss, No weakness, No diaphoresis, No edema, No loss of appetite Skin: No skin lesions, No rash, No bruising Head: No headache, No light-headedness Eyes: No loss of vision, No pain, No diplopia ENT: No earache, No nasal drainage, No sore throat, No tinnitus Neck: No neck pain, No swelling, No thyromegaly, No stiffness, No mass noted Cardio Vascular: No chest pain, No palpitations, No PND, No orthopnea, No edema Pulmonary: No SOB, No cough, No sputum, No wheezing GI: No nausea, No vomiting, No diarrhea, No pain, No melena, No hematochezia, No constipation, No hematemesis G/U: No dysuria, No frequency, No hematuria Musculoskeletal: No bone or joint pain, No back pain, No muscle pain Endocrine: Polyuria, Polydipsia, Other (thirsty) Psychiatric: No prior psych history, No depression, No anxiety, No suicidal ideation Hematopoietic: No bruising, No lymphadenopathy Allergic/Immuno: No urticaria, No angioedema Neurological: No syncope, No focal symptoms, No weakness, No paresthesia, No headache, No seizure, No dizziness, No confusion, No vertigo ED Past Medical History - Past Medical History Obtainable: Yes Past Medical History: DM Social History: Smoker, Illicit Drug Use Family Medical History - Family Member Mother History Unknown: Yes Ethnicity: Non- Living Status: Still Living Hx Family Cancer: No Hx Family Coronary Artery Disease: No Hx Family Congestive Heart Failure: No Hx Family Hypertension: No Hx Family Stroke: No Hx Family Diabetes: No Hx Family Seizures: No Hx Family Dementia: No Hx Family AIDS: No Hx Family HIV: No Hx Family COPD: No Hx Family Hepatitis: No Hx Family Psychiatric Problems: No Hx Family Tuberculosis: No ED Physical Exam - Physical Examination General/Constitutional: Awake, Well-developed, well-nourished, Alert, No distress, GCS 15, Non-toxic appearing, Ambulatory Head: Atraumatic Eyes: Lids, conjuctiva normal, PERRL, EOMI Other Skin comments:: left ear with slight swelling and erythema. no crepitance. no evidence of chondritis. no abscess. track hamilton on BUE and meth rash from picking at his own skin. ENMT: External ears, nose nl, TM canals nl, Nasal exam nl, Lips, teeth, gums nl , Oropharynx nl, Tonsils nl Neck: Nontender, Full ROM w/o pain, No nuchal rigidity, No stridor Respiratory: Nl effort/Exclusion, Clear to Auscultation, No Wheeze/Rhonchi/Rales Cardio Vascular: RRR, No murmur, gallop, rubs, NL S1 S2 GI: No tenderness/rebounding/guarding, No organomegaly, No hernia, Normal BS's, Nondistended, No mass/bruits, No McBurney tenderness : No CVA tenderness Extremities: No tenderness or effusion, Full ROM, normal strength in all extremities, No edema, Normal digits & nails Neuro/Psych: Alert/oriented, Normal motor strength Other Neuro/Psych comments:: Of note, prominent [place] tattoo present on the upper back. Patient is selectively verbally abusive to all staff of color: Tasha Wilkes, Tasha Watson and Dr. Watts. Patient called Tasha Wilkes a "piece of shit" when he was placing IV's and giving medications to him. Patient tried to get out of bed while he was attached to three IV's. He wanted to get up to the water machine that was on the other side of the room. I asked the patient to stay in bed so that the IV's would not be ripped out. He may no attempt to push the IV poles with him in order to prevent them from being ripped out. The patient then called me a "fucking slut bitch lesbian." He then said that he wanted to sign out "AMA", "against medical advice." The patient is sober and legally competent to make this decision to sign out against medical advice and was allowed to sign out against medical advice. Other [facility] comments:: prominent [place] tattoo present on the upper back. ED Labs/Radiology/EKG Results - Lab Results Results: Laboratory Tests 05/17/18 05/17/18 17:50 17:50 WBC 6.4 RBC 4.00 L Hgb 12.5 Hct 36.7 L MCV 91.8 MCH 31.3 H MCHC Differential 34.1 RDW 13.7 Plt Count 458 H MPV 7.4 Neutrophils % 58.3 Lymphocytes % 29.7 Monocytes % 8.1 Eosinophils % 2.3 Basophils % 1.6 Sodium 133 L Potassium 4.3 Chloride 95 L Carbon Dioxide 25.3 Anion Gap 17.0 H BUN 21 Creatinine 1.0 Est GFR ( Amer) > 60.0 Est GFR (Non-Af Amer) > 60.0 BUN/Creatinine Ratio 21.0 Glucose 651 H* Calcium 9.4 Phosphorus 3.4 Magnesium 2.0 Total Bilirubin 0.8 AST 68 H ALT 53 H Alkaline Phosphatase 80 Total Protein 6.7 Albumin 4.0 L Globulin 2.7 Albumin/Globulin Ratio 1.5 ED Assessment - Assessment General Assessment: Of note, prominent [place] tattoo present on the upper back. Patient is selectively verbally abusive to all staff of color: Tasha Wilkes, Tasha Watson and Dr. Watts. Patient called Tasha Wilkes a "piece of shit" when he was placing IV's and giving medications to him. Patient tried to get out of bed while he was attached to three IV's. He wanted to get up to the water machine that was on the other side of the room. I asked the patient to stay in bed so that the IV's would not be ripped out. He may no attempt to push the IV poles with him in order to prevent them from being ripped out. The patient then called me a "fucking slut bitch lesbian." He then said that he wanted to sign out "AMA", "against medical advice." The patient is sober and legally competent to make this decision to sign out against medical advice and was allowed to sign out against medical advice. patient was able to get nearly 2 liters of fluids into him as well as 10 units of insulin. He also received some IV Vancomycin for his left ear infection. ED Septic Shock - . Is Septic Shock (SBP<90, OR Lactate>4 mmol\\L) present?: No - <6hrs of presentation: Vital Signs: Vital Signs - 8 hr 05/17/18 18:00 Temp 99.5 F HR 97 RR 18 BP 158/96 O2 Sat % 96 ED Reassessment (Disposition) - Reassessment Reassessment Condition:: Improved - Diagnosis Diagnosis:: Hyperglycemia in a noncompliant insulin dependent diabetic Methamphetamine usage Marijuana usage Elevated liver function tests (denies h/o hepatitis) Elevated blood pressure Antisocial personality with exhibited verbal abuse to all staff of color. - Patient Disposition Discharge/Transfer:: Against Medical Advice Condition at Disposition:: Stable, Improved
--- NOTE | 2018-05-18 08:32 | Diagnostic Imaging Report ---
Portable chest x-ray History: Cough Allowing for portable technique the heart size is normal. No focal pulmonary parenchymal processes. No hilar or mediastinal abnormalities. Impression: No acute abnormalities.
== END 2018-05-17 19:00 | disposition left against medical advice (07) ==
LOC: ER 17:38
DX: E11.65 Type 2 diabetes mellitus with hyperglycemia (principal); F60.2 Antisocial personality disorder; F12.90 Cannabis use, unspecified, uncomplicated; F13.90 Sedative, hypnotic, or anxiolytic use, unspecified, uncomplicated; R03.0 Elevated blood-pressure reading, without diagnosis of hypertension; R94.5 Abnormal results of liver function studies; F17.200 Nicotine dependence, unspecified, uncomplicated
CPT/HCPCS: 99285; 96365; 96375; 71045; 36415; 85025; 83036; 83735; 84100; 80053; J3370; J1815; J7030

== ENCOUNTER 2018-08-10 17:57 | Emergency (ER) | payer MEDICAID | END 2018-08-10 19:21 | disposition left against medical advice (07) | LOC: ER 17:57 | DX: Z53.21 Procedure and treatment not carried out due to patient leaving prior to being seen by health care provider (principal); R73.09 Other abnormal glucose | CPT/HCPCS: 82948-90 ==

== ENCOUNTER 2018-08-18 03:06 | Emergency (ER) | payer MEDICAID | END 2018-08-18 03:17 | disposition short-term general hospital (02) | LOC: ER 03:06 | DX: Z53.21 Procedure and treatment not carried out due to patient leaving prior to being seen by health care provider (principal); Z73.9 Problem related to life management difficulty, unspecified | CPT/HCPCS: 82948-90; Z7502 ==

== ENCOUNTER 2018-08-20 01:48 | Emergency (ER) | payer MEDICAID ==
--- NOTE | 2018-08-20 02:29 | ED Physician Chart ---
ED Chief Complaint/HPI - Patient Information Date Seen:: 08/20/18 Time Seen:: 02:20 Chief Complaint:: redness and swelling left ear History of Present Illness:: Patient had redness and swelling of the left ear for an uncertain length of time. He went to another emergency room 2 weeks ago for the same problem and was prescribed Keflex but lost the prescription and didn't take any of the pills. Allergies:: Allergies Allergy/AdvReac Type Severity Reaction Status Date / Time No Known Allergies Allergy Verified 08/20/18 02:09 Vitals:: Vital Signs - 8 hr 08/20/18 01:50 Temp 98.1 F HR 110 RR 18 BP 156/85 O2 Sat % 98 Historian:: Patient Review:: Nurse's Note Reviewed ED Review of Systems - Review of Systems General/Constitutional: No fever, No chills Skin: Skin lesions Head: No headache Eyes: No loss of vision ENT: Other (see history and physical) Neck: No neck pain, No swelling Cardio Vascular: No chest pain, No palpitations Pulmonary: No SOB GI: No nausea, No vomiting, No diarrhea G/U: No dysuria Musculoskeletal: No bone or joint pain Endocrine: No polyuria Hematopoietic: No bruising Allergic/Immuno: No urticaria Neurological: No syncope ED Past Medical History - Past Medical History Past Medical History: DM Family History: None Social History: Smoker, Non Smoker, Illicit Drug Use Surgical History: None Psychiatricy History: Depression Family Medical History - Family Member Mother History Unknown: Yes Ethnicity: Non- Living Status: Still Living Hx Family Cancer: No Hx Family Coronary Artery Disease: No Hx Family Congestive Heart Failure: No Hx Family Hypertension: No Hx Family Stroke: No Hx Family Diabetes: No Hx Family Seizures: No Hx Family Dementia: No Hx Family AIDS: No Hx Family HIV: No Hx Family COPD: No Hx Family Hepatitis: No Hx Family Psychiatric Problems: No Hx Family Tuberculosis: No ED Physical Exam - Physical Examination General/Constitutional: Awake, Well-developed, well-nourished, Alert, No distress, GCS 15, Non-toxic appearing, Ambulatory Head: Atraumatic Eyes: Lids, conjuctiva normal, PERRL, EOMI Other Skin comments:: see under ENT Other ENMT comments:: Left ear 2 out of 4 red and swollen; cannot visualize left tympanic membrane. Right ear normal. Neck: No nuchal rigidity Respiratory: Nl effort/Exclusion, Clear to Auscultation Cardio Vascular: RRR, No murmur, gallop, rubs, NL S1 S2 GI: No tenderness/rebounding/guarding, No organomegaly Extremities: Normal digits & nails Neuro/Psych: No focal deficits ED Labs/Radiology/EKG Results - Lab Results Results: Laboratory Tests 08/20/18 02:03 POC Glucose 72 ED Septic Shock - . Is Septic Shock (SBP<90, OR Lactate>4 mmol\L) present?: No - <6hrs of presentation: Vital Signs: Vital Signs - 8 hr 08/20/18 01:50 Temp 98.1 F HR 110 RR 18 BP 156/85 O2 Sat % 98 ED Reassessment (Disposition) - Diagnosis Diagnosis:: Cellulitis left external ear; diabetes - Aftercare/Follow up Instructions Aftercare/Follow-Up Instructions:: Refer to Discharge Instructions Medication Prescribed:: Keflex 500 mg 4 times a day for 10 days - Patient Disposition Discharge/Transfer:: Home Condition at Disposition:: Stable, Unchanged
== END 2018-08-20 02:48 | disposition home or self-care (01) ==
LOC: ER 01:48
DX: H60.12 Cellulitis of left external ear (principal); E11.9 Type 2 diabetes mellitus without complications; F32.9 Major depressive disorder, single episode, unspecified; F17.200 Nicotine dependence, unspecified, uncomplicated; Z59.0 Homelessness
CPT/HCPCS: 82948-90; Z7502; Z7610

== ENCOUNTER 2018-09-01 12:30 | Emergency (ER) | payer MEDICAID | END 2018-09-01 13:15 | disposition left against medical advice (07) | LOC: ER 12:30 | DX: R73.09 Other abnormal glucose (principal); Z53.21 Procedure and treatment not carried out due to patient leaving prior to being seen by health care provider | CPT/HCPCS: 82948-90 ==

== ENCOUNTER 2018-11-09 22:57 | Emergency (ER) | payer MEDICAID ==
--- NOTE | 2018-11-10 00:08 | ED Physician Chart ---
ED Chief Complaint/HPI - Patient Information Date Seen:: 11/10/18 Time Seen:: 00:06 Chief Complaint:: Bilateral feet pain History of Present Illness:: 27 yo homeless male had bilateral feet pain, itchiness and dry skin for 1 year, worsened for a few days. Allergies:: Allergies Allergy/AdvReac Type Severity Reaction Status Date / Time No Known Allergies Allergy Verified 08/20/18 02:09 Vitals:: Vital Signs - 8 hr 11/09/18 23:10 Temp 98.9 F HR 130 RR 20 BP 160/101 O2 Sat % 99 ED Review of Systems - Review of Systems General/Constitutional: No fever Skin: Skin lesions Head: No headache Eyes: No pain ENT: No earache Neck: No neck pain Cardio Vascular: No chest pain Pulmonary: No SOB GI: No nausea, No vomiting Musculoskeletal: No bone or joint pain Psychiatric: Prior psych history Neurological: No focal symptoms ED Past Medical History - Past Medical History Past Medical History: HTN, DM (type I) Social History: Smoker, Alcohol, Illicit Drug Use (Marijuana) Surgical History: other (R submandibullary salivary gland removal ) Psychiatricy History: Depression, Other (Anxiety, paranoia) Family Medical History - Family Member Mother History Unknown: Yes Ethnicity: Non- Living Status: Still Living Hx Family Cancer: No Hx Family Coronary Artery Disease: No Hx Family Congestive Heart Failure: No Hx Family Hypertension: No Hx Family Stroke: No Hx Family Diabetes: No Hx Family Seizures: No Hx Family Dementia: No Hx Family AIDS: No Hx Family HIV: No Hx Family COPD: No Hx Family Hepatitis: No Hx Family Psychiatric Problems: No Hx Family Tuberculosis: No ED Physical Exam - Physical Examination General/Constitutional: Awake, Alert Head: Atraumatic Eyes: PERRL ENMT: Nasal exam nl Neck: No nuchal rigidity Respiratory: No Wheeze/Rhonchi/Rales Cardio Vascular: RRR, No murmur, gallop, rubs, NL S1 S2 GI: No tenderness/rebounding/guarding Other Extremities comments:: Bilateral feet mild erythema, skin shedding near the toes ED Assessment - Assessment General Assessment: Tinea pedis ED Septic Shock - . Is Septic Shock (SBP<90, OR Lactate>4 mmol\L) present?: No - <6hrs of presentation: Vital Signs: Vital Signs - 8 hr 11/09/18 23:10 Temp 98.9 F HR 130 RR 20 BP 160/101 O2 Sat % 99 ED Reassessment (Disposition) - Reassessment Reassessment Condition:: Unchanged - Aftercare/Follow up Instructions Notes:: Follow up PCP Medication Prescribed:: Ketoconazole topical cream 2%, topical apply, qd for 6 weeks, 30 g supply
== END 2018-11-10 00:30 | disposition home or self-care (01) ==
LOC: ER 22:57
DX: B35.3 Tinea pedis (principal); I10 Essential (primary) hypertension; E11.9 Type 2 diabetes mellitus without complications; F17.200 Nicotine dependence, unspecified, uncomplicated
CPT/HCPCS: 82948-90; Z7502

== ENCOUNTER 2018-12-14 01:36 | Emergency (ER) | payer MEDICAID ==
--- NOTE | 2018-12-14 02:50 | ED Physician Chart ---
ED Chief Complaint/HPI - Patient Information Date Seen:: 12/14/18 Time Seen:: 01:50 History of Present Illness:: Pt was brought in by ambulance reportedly because he had an episode of hypoglycemia. Pt is now alert and oriented x 3. He breathes comfortably and ambulates without difficulty. Accuchek repeated at this ER is 108. Pt decides to sign out AMA and to leave immediately. Pt refuses lab studies, further history and physical exam. Indications for further evaluation and observation at ER have been well explained, related benefits and risks, including risks for leaving AMA have been well explained. Pt acknowledges understanding but still chooses to leave AMA. Pt has signed AMA form. Pt has been explained that if he changes his mind, he is welcome to return anytime. The above discussion and signing of AMA form have been witnessed by my nurse Kim. Allergies:: Allergies Allergy/AdvReac Type Severity Reaction Status Date / Time No Known Allergies Allergy Verified 12/14/18 01:42 Vitals:: Vital Signs - 8 hr 12/14/18 01:40 Temp 98.1 F HR 110 RR 18 BP 142/80 O2 Sat % 98 Family Medical History - Family Member Mother History Unknown: Yes Ethnicity: Non- Living Status: Still Living Hx Family Cancer: No Hx Family Coronary Artery Disease: No Hx Family Congestive Heart Failure: No Hx Family Hypertension: No Hx Family Stroke: No Hx Family Diabetes: No Hx Family Seizures: No Hx Family Dementia: No Hx Family AIDS: No Hx Family HIV: No Hx Family COPD: No Hx Family Hepatitis: No Hx Family Psychiatric Problems: No Hx Family Tuberculosis: No ED Labs/Radiology/EKG Results - Lab Results Results: Laboratory Tests 12/14/18 01:54 POC Glucose 108 H ED Septic Shock - . Is Septic Shock (SBP<90, OR Lactate>4 mmol\L) present?: No - <6hrs of presentation: Vital Signs: Vital Signs - 8 hr 12/14/18 01:40 Temp 98.1 F HR 110 RR 18 BP 142/80 O2 Sat % 98 ED Reassessment (Disposition) - Reassessment Reassessment Condition:: Improved - Diagnosis Diagnosis:: H/O hypoglycemia, resolved. - Patient Disposition Discharge/Transfer:: Against Medical Advice Time:: 02:10 Condition at Disposition:: Stable
== END 2018-12-14 02:20 | disposition left against medical advice (07) ==
LOC: ER 01:36
DX: E16.2 Hypoglycemia, unspecified (principal)
CPT/HCPCS: 82948-90; Z7502

== ENCOUNTER 2018-12-18 06:10 | Emergency (ER) | payer MEDICAID | END 2018-12-18 07:26 | disposition left against medical advice (07) | LOC: ER 06:10 | DX: M79.2 Neuralgia and neuritis, unspecified (principal); Z53.21 Procedure and treatment not carried out due to patient leaving prior to being seen by health care provider ==

== ENCOUNTER 2019-01-16 15:51 | Inpatient (IN) | payer MEDICAID ==
[2019-01-16] MEDS ORDERED: INSULIN HUMAN REGULAR 100 UNITS/ML UNIT IVP ONE ×2 (16:11→16:12)
[2019-01-16] MEDS ORDERED: Sodium Chloride 0.9% 1,000 ML IV ONE ×3 (16:12→16:13)
--- NOTE | 2019-01-16 16:17 | ED Physician Chart ---
ED Chief Complaint/HPI - Patient Information Date Seen:: 01/16/19 Time Seen:: 16:14 Chief Complaint:: high sugar thirsty History of Present Illness:: 28 yr old male with hx juvenille diabetes since age 14 who ran out of his insulin feeling thirsty and very agitated no vomiting fever or diarhea Allergies:: Allergies Allergy/AdvReac Type Severity Reaction Status Date / Time No Known Allergies Allergy Verified 12/14/18 01:42 ED Review of Systems - Review of Systems General/Constitutional: No fever, No chills Skin: No skin lesions Head: No headache Eyes: No loss of vision ENT: No earache Neck: No neck pain Cardio Vascular: No chest pain Pulmonary: No SOB GI: No nausea, No vomiting, No diarrhea G/U: No dysuria Psychiatric: Prior psych history Hematopoietic: No bruising Allergic/Immuno: No urticaria Neurological: No syncope ED Past Medical History - Past Medical History Past Medical History: DM Family Medical History - Family Member Mother History Unknown: Yes Ethnicity: Non- Living Status: Still Living Hx Family Cancer: No Hx Family Coronary Artery Disease: No Hx Family Congestive Heart Failure: No Hx Family Hypertension: No Hx Family Stroke: No Hx Family Diabetes: No Hx Family Seizures: No Hx Family Dementia: No Hx Family AIDS: No Hx Family HIV: No Hx Family COPD: No Hx Family Hepatitis: No Hx Family Psychiatric Problems: No Hx Family Tuberculosis: No ED Physical Exam - Physical Examination General/Constitutional: Awake, Well-developed, well-nourished, Alert, GCS 15 ( breath), Ambulatory Head: Atraumatic Eyes: Lids, conjuctiva normal, PERRL, EOMI Skin: Nl inspection, No rash, No skin lesions, No ecchymosis, Well hydrated, No lymphadenopathy ENMT: External ears, nose nl, Nasal exam nl, Lips, teeth, gums nl Neck: Nontender, Full ROM w/o pain, No JVD, No nuchal rigidity, No bruit, No mass, No stridor Respiratory: Nl effort/Exclusion, Clear to Auscultation, No Wheeze/Rhonchi/Rales Cardio Vascular: RRR, No murmur, gallop, rubs, NL S1 S2 GI: No tenderness/rebounding/guarding, No organomegaly, No hernia, Normal BS's, Nondistended, No mass/bruits, No McBurney tenderness : No CVA tenderness Extremities: No tenderness or effusion, Full ROM, normal strength in all extremities, No edema, Normal digits & nails Neuro/Psych: Alert/oriented, DTR's symmetric, Normal sensory exam, Normal motor strength, Judgement/insight normal, Mood normal, Normal gait, No focal deficits Misc: Normal back, No paraspinal tenderness ED Assessment - Assessment General Assessment: dka ED Septic Shock - . Is Septic Shock (SBP<90, OR Lactate>4 mmol\L) present?: No ED Reassessment (Disposition) - Reassessment Reassessment:: hyperglycemia dka - Diagnosis Diagnosis:: as above - Patient Disposition Discharge/Transfer:: Acute Care w/in this hosp Condition at Disposition:: Stable
[2019-01-16 16:19] LABS: % BASOPHILS 0.7 % (0.0-2.0); % EOSINOPHILS 0.4 % (0.0-5.0); % LYMPHOCYTES 10.7 % (20.0-50.0); % MONOCYTES 6.3 % (2.0-10.0); % NEUTROPHILS 81.9 % (40.0-80.0); BASOPHILE ABSOLUTE 0.1 Th/cumm (0-0.2); HEMOGLOBIN 12.1 gm/dL (12-16); MEAN CELL VOLUME 92.4 fl (80-99); MEAN CORPUSCULAR HEMOGLOBIN 31.2 pg (26.0-30.0); MEAN CORPUSCULAR HGB CONC 33.7 pg (28.0-36.0); MONOCYTE ABSOLUTE 0.6 Th/cmm (0.3-1.0); NEUTROPHILE ABSOLUTE 8.1 Th/cmm (1.8-8.0); PLATELET COUNT 405 Th/cmm (150-400); RED BLOOD COUNT 3.89 Mil/cmm (4.30-5.70); WHITE BLOOD COUNT 9.8 Th/cmm (4.8-10.8)
[2019-01-16 16:40] LABS: ALB/GLOB RATIO 1.8 (1.0-1.8); ALBUMIN 4.2 gm/dL (4.2-5.5); ALKALINE PHOSPHATASE 74 U/L (34-104); ANION GAP 29.9 (7.0-16.0); BILIRUBIN,TOTAL 1.9 mg/dL (0.3-1.0); BUN - UREA NITROGEN 25 mg/dL (7-25); CALCIUM SERUM 9.1 mg/dL (8.6-10.3); CHLORIDE 88 mEq/L (98-107); CREATININE - SERUM 1.4 mg/dL (0.7-1.3); GFR AFRICAN-AMERICAN > 60.0 ml/min (>90); GFR NON AFRICAN-AMERICAN > 60.0 ml/min; POTASSIUM SERUM 4.9 mEq/L (3.5-5.1); SGOT 23 U/L (13-39); SGPT/ALT 24 U/L (7-52); SODIUM SERUM 125 mEq/L (136-145); TOTAL PROTEIN,SERUM 6.5 gm/dL (6.0-8.3)
[2019-01-16 16:47] LABS: GLUCOSE 999 mg/dL (70-105)
[2019-01-16 17:51] LABS: URINE SOURCE CLEAN C
[2019-01-16 17:56] LABS: URINE BILIRUBIN NEGATIVE (NEGATIVE); URINE BLOOD NEGATIVE (NEGATIVE); URINE GLUCOSE (UA) >=1000 mg/dL (NEGATIVE); URINE KETONE 40 mg/dL (NEGATIVE); URINE LEUKOCYTE ESTERASE NEGATIVE (NEGATIVE); URINE MICROSCOPIC INDICATED? YES; URINE NITRATE NEGATIVE (NEGATIVE); URINE PH 5.5 (4.6 - 8.0); URINE PROTEIN NEGATIVE (NEGATIVE); URINE UROBILINOGEN 0.2 E.U./dL (0.2 - 1.0)
[2019-01-16 17:59] LABS: URINE CLARITY CLEAR (CLEAR); URINE COLOR YELLOW
[2019-01-16 18:07] LABS: URINE BACTERIA NONE SEEN /hpf (NONE SEEN); URINE EPITHELIAL CELLS NONE SEEN /lpf (FEW); URINE RBC NONE SEEN /hpf (0-5); URINE WBC NONE SEEN /hpf (0-5)
[2019-01-16 18:13] LABS: AMPHETAMINE URINE POSITIVE (NEGATIVE); BARBITURATES URINE NEGATIVE (NEGATIVE); CANNABINOID THC NEGATIVE (NEGATIVE); COCAINE METABOLITE QUAL URINE NEGATIVE (NEGATIVE); METHADONE URINE NEGATIVE (NEGATIVE); METHAMPHETAMINES QUAL URINE POSITIVE (NEGATIVE); OPIATES (MORPHINE) QUAL. URINE NEGATIVE (NEGATIVE); PHENCYCLIDINE (PCP) URINE NEGATIVE (NEGATIVE); TRICYCLICS (TCA) QUAL. URINE NEGATIVE (NEGATIVE)
[2019-01-16 18:14] LABS: BENZODIAZEPINES QUAL URINE NEGATIVE (NEGATIVE)
[2019-01-16] MEDS: Sodium Chloride 0.9% 1,000 ML IV SCH (22:50)
[2019-01-16 23:09] VITALS: BP 131/84
[2019-01-17] MEDS ORDERED: Dextrose 50% 50 mL Abboject IVP PRN ×2 (00:08→08:37)
[2019-01-17] MEDS: INSULIN HUMAN REGULAR 100 UNITS/ML UNIT SUBQ SCH ×2 (00:38→06:31)
[2019-01-17 04:40] LABS: % BASOPHILS 0.3 % (0.0-2.0); % EOSINOPHILS 4.6 % (0.0-5.0); % LYMPHOCYTES 31.5 % (20.0-50.0); % MONOCYTES 6.6 % (2.0-10.0); EOSINOPHILE ABSOLUTE 0.5 Th/cmm (0.1-0.4); HEMATOCRIT 39.6 % (41.0-60); HEMOGLOBIN 13.5 gm/dL (12-16); LYMPHOCYTE ABSOLUTE 3.2 Th/cmm (1.5-3.0); MEAN CELL VOLUME 90.9 fl (80-99); MEAN CORPUSCULAR HEMOGLOBIN 31.1 pg (26.0-30.0); MEAN CORPUSCULAR HGB CONC 34.2 pg (28.0-36.0); MONOCYTE ABSOLUTE 0.7 Th/cmm (0.3-1.0); NEUTROPHILE ABSOLUTE 5.7 Th/cmm (1.8-8.0); PLATELET COUNT 378 Th/cmm (150-400); RED BLOOD COUNT 4.35 Mil/cmm (4.30-5.70); WHITE BLOOD COUNT 10.1 Th/cmm (4.8-10.8)
[2019-01-17 05:15] LABS: BUN - UREA NITROGEN 14 mg/dL (7-25); CALCIUM SERUM 9.2 mg/dL (8.6-10.3); CHLORIDE 101 mEq/L (98-107); CHOLESTEROL 132 mg/dL (<200); GFR AFRICAN-AMERICAN > 60.0 ml/min (>90); GFR NON AFRICAN-AMERICAN > 60.0 ml/min; HDL -HIGH DENSITY LIPOPROTEIN 56 mg/dL (23-92); POTASSIUM SERUM 3.6 mEq/L (3.5-5.1); TRIGLYCERIDES 178 mg/dL (<150)
[2019-01-17 05:31] LABS: GLUCOSE 205 mg/dL (70-105); SODIUM SERUM 138 mEq/L (136-145)
[2019-01-17 05:53] LABS: ANION GAP 17.4 (7.0-16.0); CARBON DIOXIDE 23.2 mEq/L (21.0-31.0)
[2019-01-17] MEDS ORDERED: INSULIN LISPRO SLIDING SCALE 100 UNITS/ML UNIT SUBQ SCH ×2 (07:19→07:30)
[2019-01-17] MEDS ORDERED: GLUCAGON HCl 1 MG KIT IM PRN (08:37)
[2019-01-17] MEDS: Sodium Chloride 0.9% 1,000 ML IV SCH (11:44)
[2019-01-17] MEDS: INSULIN LISPRO SLIDING SCALE 100 UNITS/ML UNIT SUBQ SCH ×3 (11:45→21:03)
--- NOTE | 2019-01-17 14:12 | History and Physical ---
History of Present Illness - HPI Chief Complaint: 28 y/o patient was brought into ER for complaints feeling thirsty and agitated. HPI: 28 y/o patient with history of juvenile diabetes since age 14 ran out of insulin and was admitted to [facility] with complaints of feeling thirsty and agitated. Patient has history of Diabetes Mellitus. Patient had an ER assessment and a complete workup was done. Patient was diagnosed with Hyperglycemia DKA. I will follow, treat and monitor Patient. Patient will continue current treatment plan as ordered. Vital Signs: Last Vital Signs Temp 98.1 F 01/17/19 11:49 Pulse 80 01/17/19 11:49 Resp 16 01/17/19 12:00 BP 149/88 01/17/19 11:49 Pulse Ox 100 01/17/19 11:49 Past Medical History Cardiovascular: Report: Other (Diabetes.) Pulmonary: Report: No Pertinent Hx INSTRUMENTAL MUSICIAN: Report: No Pertinent Hx GI: Report: No Pertinent Hx Psych: Report: No Pertinent Hx Musculoskeletal: Report: No Pertinent Hx Rheumatologic: Report: No pertinent Hx Infectious Disease: Report: No Pertinent Hx Renal/: Report: No Pertinent Hx Endocrine: Report: Diabetes Dermatology: Report: No Pertinent Hx - Past Surgical History Past Surgical History: No pertinent Hx Family Medical History - Family Member Mother History Unknown: Yes Ethnicity: Non- Living Status: Still Living Hx Family Cancer: No Hx Family Coronary Artery Disease: No Hx Family Congestive Heart Failure: No Hx Family Hypertension: No Hx Family Stroke: No Hx Family Diabetes: No Hx Family Seizures: No Hx Family Dementia: No Hx Family AIDS: No Hx Family HIV: No Hx Family COPD: No Hx Family Hepatitis: No Hx Family Psychiatric Problems: No Hx Family Tuberculosis: No Social History Smoke: No Alcohol: None Drugs: None Lives: With Family Domestic Violence: Negative Health Maintenance Health Maintenance: Other (see chart.) - Medications Home Medications: Home Medication Medication Instructions Recorded Type Insulin Glargine [Lantus] 35 unit SUBQ HS 03/22/17 History Insulin Lispro [Humalog] See Protocol SUBQ QDAC 03/22/17 History Gabapentin 300 mg PO TID 09/30/17 History Other Medications: Please see medication reconciliation sheet. - Allergies Allergies/Adverse Reactions: Allergies Allergy/AdvReac Type Severity Reaction Status Date / Time No Known Allergies Allergy Verified 12/14/18 01:42 Review of Systems - Review of Systems Review of Systems: Patient was admitted with Hyperglycemia, due to running out of Insulin. Constitutional: Report: Weakness Eyes: Report: No Significant ENT: Report: No Significant Respiratory: Report: No Significant Cardiovascular: Report: No Significant Gastrointestinal: Report: No Significant Genitourinary: Report: No Significant Musculoskeletal: Report: No Significant Neurological: Report: No Significant Physical Exam - Physical Exam HEENT: Report: Ears Nose Throat within normal limits Neck: Report: Within normal limits Cardiovascular Systems: Report: +s1/s2 noted Respiratory: Report: Breath Sounds are within normal limits Abdomen: Report: Non-tender to palpation Back: Report: Inspection of back is within normal limits. Extremities: Report: Non-tender to palpation. Skin: Report: Color of skin is within normal limits Neuro/Psych: Report: Mood affect is within normal limits - Lab Results All Lab Results last 24 hours: Laboratory Results - last 24 hr 01/16/19 01/16/19 01/16/19 16:00 16:00 16:00 WBC RBC Hgb Hct MCV MCH MCHC Differential RDW Plt Count MPV Neutrophils % Lymphocytes % Monocytes % Eosinophils % Basophils % Sodium 125 L Potassium 4.9 Chloride 88 L Carbon Dioxide 12.0 L Anion Gap 29.9 H BUN 25 Creatinine 1.4 H Est GFR ( Amer) > 60.0 Est GFR (Non-Af Amer) > 60.0 BUN/Creatinine Ratio 17.9 Glucose 989 H* 999 H* POC Glucose Whole Bld Lactic Acid Calcium 9.1 Total Bilirubin 1.9 H AST 23 ALT 24 Alkaline Phosphatase 74 Total Protein 6.5 Albumin 4.2 Globulin 2.3 Albumin/Globulin Ratio 1.8 Triglycerides Cholesterol LDL Cholesterol Direct HDL Cholesterol Urine Source Urine Color Urine Clarity Urine pH Ur Specific [place] Urine Protein Urine Glucose (UA) Urine Ketones Urine Blood Urine Nitrate Urine Bilirubin Urine Urobilinogen Ur Leukocyte Esterase Urine RBC Urine WBC Ur Epithelial Cells Uric Acid Crystals Urine Bacteria Urine Opiates Screen Urine Methadone Screen Ur Barbiturates Screen Ur Tricyclics Screen Ur Phencyclidine Scrn Amphetamines Screen U Methamphetamines Scrn U Benzodiazepines Scrn U Cocaine Metab Screen U Cannabinoids Screen Serum Ketones MODERATE H 01/16/19 01/16/19 01/16/19 16:00 16:00 17:00 WBC 9.8 RBC 3.89 L Hgb 12.1 Hct 36.0 L MCV 92.4 MCH 31.2 H MCHC Differential 33.7 RDW 14.0 Plt Count 405 H MPV 8.4 Neutrophils % 81.9 H Lymphocytes % 10.7 L Monocytes % 6.3 Eosinophils % 0.4 Basophils % 0.7 Sodium Potassium Chloride Carbon Dioxide Anion Gap BUN Creatinine Est GFR ( Amer) Est GFR (Non-Af Amer) BUN/Creatinine Ratio Glucose POC Glucose Whole Bld Lactic Acid 1.95 Calcium Total Bilirubin AST ALT Alkaline Phosphatase Total Protein Albumin Globulin Albumin/Globulin Ratio Triglycerides Cholesterol LDL Cholesterol Direct HDL Cholesterol Urine Source CLEAN C Urine Color YELLOW Urine Clarity CLEAR Urine pH 5.5 Ur Specific [place] 1.010 Urine Protein NEGATIVE Urine Glucose (UA) >=1000 H Urine Ketones 40 H Urine Blood NEGATIVE Urine Nitrate NEGATIVE Urine Bilirubin NEGATIVE Urine Urobilinogen 0.2 Ur Leukocyte Esterase NEGATIVE Urine RBC NONE SEEN Urine WBC NONE SEEN Ur Epithelial Cells NONE SEEN Uric Acid Crystals FEW Urine Bacteria NONE SEEN Urine Opiates Screen Urine Methadone Screen Ur Barbiturates Screen Ur Tricyclics Screen Ur Phencyclidine Scrn Amphetamines Screen U Methamphetamines Scrn U Benzodiazepines Scrn U Cocaine Metab Screen U Cannabinoids Screen Serum Ketones 01/16/19 01/16/19 01/16/19 17:00 17:45 18:40 WBC RBC Hgb Hct MCV MCH MCHC Differential RDW Plt Count MPV Neutrophils % Lymphocytes % Monocytes % Eosinophils % Basophils % Sodium Potassium Chloride Carbon Dioxide Anion Gap BUN Creatinine Est GFR ( Amer) Est GFR (Non-Af Amer) BUN/Creatinine Ratio Glucose 680 H* POC Glucose 485 H* Whole Bld Lactic Acid Calcium Total Bilirubin AST ALT Alkaline Phosphatase Total Protein Albumin Globulin Albumin/Globulin Ratio Triglycerides Cholesterol LDL Cholesterol Direct HDL Cholesterol Urine Source Urine Color Urine Clarity Urine pH Ur Specific [place] Urine Protein Urine Glucose (UA) Urine Ketones Urine Blood Urine Nitrate Urine Bilirubin Urine Urobilinogen Ur Leukocyte Esterase Urine RBC Urine WBC Ur Epithelial Cells Uric Acid Crystals Urine Bacteria Urine Opiates Screen NEGATIVE Urine Methadone Screen NEGATIVE Ur Barbiturates Screen NEGATIVE Ur Tricyclics Screen NEGATIVE Ur Phencyclidine Scrn NEGATIVE Amphetamines Screen POSITIVE H U Methamphetamines Scrn POSITIVE H U Benzodiazepines Scrn NEGATIVE U Cocaine Metab Screen NEGATIVE U Cannabinoids Screen NEGATIVE Serum Ketones 01/16/19 01/17/19 01/17/19 19:39 04:10 04:10 WBC 10.1 RBC 4.35 Hgb 13.5 Hct 39.6 L MCV 90.9 MCH 31.1 H MCHC Differential 34.2 RDW 14.0 Plt Count 378 MPV 7.6 Neutrophils % 57.0 Lymphocytes % 31.5 Monocytes % 6.6 Eosinophils % 4.6 Basophils % 0.3 Sodium 138 D Potassium 3.6 Chloride 101 Carbon Dioxide 23.2 Anion Gap 17.4 H BUN 14 Creatinine 1.0 Est GFR ( Amer) > 60.0 Est GFR (Non-Af Amer) > 60.0 BUN/Creatinine Ratio 14.0 Glucose 205 H D POC Glucose 421 H Whole Bld Lactic Acid Calcium 9.2 Total Bilirubin AST ALT Alkaline Phosphatase Total Protein Albumin Globulin Albumin/Globulin Ratio Triglycerides 178 H Cholesterol 132 LDL Cholesterol Direct 44 L HDL Cholesterol 56 Urine Source Urine Color Urine Clarity Urine pH Ur Specific [place] Urine Protein Urine Glucose (UA) Urine Ketones Urine Blood Urine Nitrate Urine Bilirubin Urine Urobilinogen Ur Leukocyte Esterase Urine RBC Urine WBC Ur Epithelial Cells Uric Acid Crystals Urine Bacteria Urine Opiates Screen Urine Methadone Screen Ur Barbiturates Screen Ur Tricyclics Screen Ur Phencyclidine Scrn Amphetamines Screen U Methamphetamines Scrn U Benzodiazepines Scrn U Cocaine Metab Screen U Cannabinoids Screen Serum Ketones 01/17/19 01/17/19 06:12 11:39 WBC RBC Hgb Hct MCV MCH MCHC Differential RDW Plt Count MPV Neutrophils % Lymphocytes % Monocytes % Eosinophils % Basophils % Sodium Potassium Chloride Carbon Dioxide Anion Gap BUN Creatinine Est GFR ( Amer) Est GFR (Non-Af Amer) BUN/Creatinine Ratio Glucose POC Glucose 119 H 405 H Whole Bld Lactic Acid Calcium Total Bilirubin AST ALT Alkaline Phosphatase Total Protein Albumin Globulin Albumin/Globulin Ratio Triglycerides Cholesterol LDL Cholesterol Direct HDL Cholesterol Urine Source Urine Color Urine Clarity Urine pH Ur Specific [place] Urine Protein Urine Glucose (UA) Urine Ketones Urine Blood Urine Nitrate Urine Bilirubin Urine Urobilinogen Ur Leukocyte Esterase Urine RBC Urine WBC Ur Epithelial Cells Uric Acid Crystals Urine Bacteria Urine Opiates Screen Urine Methadone Screen Ur Barbiturates Screen Ur Tricyclics Screen Ur Phencyclidine Scrn Amphetamines Screen U Methamphetamines Scrn U Benzodiazepines Scrn U Cocaine Metab Screen U Cannabinoids Screen Serum Ketones - Assessment Assessment: Hyperglycemia DKA. Current Active Problems Problem Status Onset HIGH BLOOD GLUCOSE AND BODY PAIN Acute - Plan Plan: Continuation of care. Monitor Labs. Continue present meds as directed. Accu-check daily, Continue Insulin coverage ad directed. Monitor Diet/Nutritional support. Fall precaution, frequent nursing rounds, and as needed restraints to prevent fall. Supportive care. Continue collaborating with consulting specialists, case management and nursing team. Will Monitor patient and continue current treatment plan as ordered.
--- NOTE | 2019-01-18 06:35 | Consultation ---
DATE OF CONSULTATION: 01/18/2019 AGE: 28. SEX: Male. PHYSICIAN: Dr. Murray. SKEIN SPOOLER: Dr. Mitchell. TYPE OF THE REPORT: Psychiatric consult. REASON FOR THE CONSULT: Psychosis. HISTORY OF PRESENT ILLNESS: The patient is a 28-year-old male who was admitted to the hospital and Dr. Murray asked me to evaluate the patient. Chart reviewed and the patient interviewed and discussed the patient's condition with the staff and reviewed records and labs. The patient is well known to me for treatment in [facility]. The patient has history of psychosis and also polysubstance use disorder. The patient was admitted to the hospital and the patient has been reporting hallucinations. The patient also admitted to his use of methamphetamine and of smoking marijuana. Urine drug screen came positive for methamphetamine. The patient also has been restless and anxious and in irritable mood. He also admits to auditory hallucinations and also during interview, the patient seems to be paranoid and in irritable mood. He denies suicidal or homicidal ideations. PAST PSYCHIATRIC HISTORY: Multiple hospitalizations for treatment of psychosis and amphetamine use disorder. PAST MEDICAL HISTORY: Noncontributory. SOCIAL HISTORY: The patient is homeless. No known legal issues or abuse issues. Unemployed. MENTAL STATUS EXAM: The patient appears older than stated age. Disheveled. Irritable mood. Thought processes are circumstantial, but no flight of ideas. The patient admits to auditory hallucinations, but denies visual hallucinations. The patient is paranoid. The patient is alert and oriented to time, place, person, and situation. Intact immediate, recent and remote memories. Poor insight and poor judgment. ASSESSMENT: PRIMARY DIAGNOSIS: Schizophrenic disorder. SECONDARY DIAGNOSIS: Amphetamine use disorder. TREATMENT PLAN: We will monitor the patient's behavior and condition closely. We will start the patient on Seroquel. The patient will need placement and also Mental Health Clinic follow up after discharge as well as treatment in a rehabilitation program. Thanks, Dr. Murray and we will follow up with you. [facility]# [phone]
[2019-01-18] MEDS: INSULIN LISPRO SLIDING SCALE 100 UNITS/ML UNIT SUBQ SCH ×4 (06:36→21:02)
[2019-01-18] MEDS ORDERED: INSULIN LISPRO 100 UNIT/ML VIAL SUBQ ONE (07:20)
[2019-01-18 08:04] LABS: A1C 10.7 % (4.8-5.6)
--- NOTE | 2019-01-18 14:11 | Internal Medicine Prog Note ---
Internal Medicine Subjective - Subjective Service Date: 01/18/19 Patient seen and examined:: without staff Patient is:: awake, denies any new complaints, stares blankly Per staff patient has:: tolerating meds Internal Medicine Objective - Results Result Diagrams: 01/17/19 04:10 01/17/19 04:10 Recent Labs: Laboratory Last Values WBC 10.1 Th/cmm (4.8-10.8) 01/17/19 04:10 RBC 4.35 Mil/cmm (4.30-5.70) 01/17/19 04:10 Hgb 13.5 gm/dL (12-16) 01/17/19 04:10 Hct 39.6 % (41.0-60) L 01/17/19 04:10 MCV 90.9 fl (80-99) 01/17/19 04:10 MCH 31.1 pg (26.0-30.0) H 01/17/19 04:10 MCHC Differential 34.2 pg (28.0-36.0) 01/17/19 04:10 RDW 14.0 % (11.5-20.0) 01/17/19 04:10 Plt Count 378 Th/cmm (150-400) 01/17/19 04:10 MPV 7.6 fl 01/17/19 04:10 Neutrophils % 57.0 % (40.0-80.0) 01/17/19 04:10 Lymphocytes % 31.5 % (20.0-50.0) 01/17/19 04:10 Monocytes % 6.6 % (2.0-10.0) 01/17/19 04:10 Eosinophils % 4.6 % (0.0-5.0) 01/17/19 04:10 Basophils % 0.3 % (0.0-2.0) 01/17/19 04:10 Sodium 138 mEq/L (136-145) D 01/17/19 04:10 Potassium 3.6 mEq/L (3.5-5.1) 01/17/19 04:10 Chloride 101 mEq/L (98-107) 01/17/19 04:10 Carbon Dioxide 23.2 mEq/L (21.0-31.0) 01/17/19 04:10 Anion Gap 17.4 (7.0-16.0) H 01/17/19 04:10 BUN 14 mg/dL (7-25) 01/17/19 04:10 Creatinine 1.0 mg/dL (0.7-1.3) 01/17/19 04:10 Est GFR ( Amer) > 60.0 ml/min (>90) 01/17/19 04:10 Est GFR (Non-Af Amer) > 60.0 ml/min 01/17/19 04:10 BUN/Creatinine Ratio 14.0 01/17/19 04:10 Glucose 205 mg/dL (70-105) H D 01/17/19 04:10 POC Glucose 343 MG/DL (70 - 105) H 01/18/19 11:12 Whole Bld Lactic Acid 1.95 mmol/L (0.60-1.99) 01/16/19 16:00 Calcium 9.2 mg/dL (8.6-10.3) 01/17/19 04:10 Total Bilirubin 1.9 mg/dL (0.3-1.0) H 01/16/19 16:00 AST 23 U/L (13-39) 01/16/19 16:00 ALT 24 U/L (7-52) 01/16/19 16:00 Alkaline Phosphatase 74 U/L (34-104) 01/16/19 16:00 Total Protein 6.5 gm/dL (6.0-8.3) 01/16/19 16:00 Albumin 4.2 gm/dL (4.2-5.5) 01/16/19 16:00 Globulin 2.3 gm/dL 01/16/19 16:00 Albumin/Globulin Ratio 1.8 (1.0-1.8) 01/16/19 16:00 Triglycerides 178 mg/dL (<150) H 01/17/19 04:10 Cholesterol 132 mg/dL (<200) 01/17/19 04:10 LDL Cholesterol Direct 44 mg/dL (75-193) L 01/17/19 04:10 HDL Cholesterol 56 mg/dL (23-92) 01/17/19 04:10 Urine Source CLEAN C 01/16/19 17:00 Urine Color YELLOW 01/16/19 17:00 Urine Clarity CLEAR (CLEAR) 01/16/19 17:00 Urine pH 5.5 (4.6 - 8.0) 01/16/19 17:00 Ur Specific [place] 1.010 (1.005-1.030) 01/16/19 17:00 Urine Protein NEGATIVE mg/dL (NEGATIVE) 01/16/19 17:00 Urine Glucose (UA) >=1000 mg/dL (NEGATIVE) H 01/16/19 17:00 Urine Ketones 40 mg/dL (NEGATIVE) H 01/16/19 17:00 Urine Blood NEGATIVE (NEGATIVE) 01/16/19 17:00 Urine Nitrate NEGATIVE (NEGATIVE) 01/16/19 17:00 Urine Bilirubin NEGATIVE (NEGATIVE) 01/16/19 17:00 Urine Urobilinogen 0.2 E.U./dL (0.2 - 1.0) 01/16/19 17:00 Ur Leukocyte Esterase NEGATIVE (NEGATIVE) 01/16/19 17:00 Urine RBC NONE SEEN /hpf (0-5) 01/16/19 17:00 Urine WBC NONE SEEN /hpf (0-5) 01/16/19 17:00 Ur Epithelial Cells NONE SEEN /lpf (FEW) 01/16/19 17:00 Uric Acid Crystals FEW /hpf (NONE SEEN) 01/16/19 17:00 Urine Bacteria NONE SEEN /hpf (NONE SEEN) 01/16/19 17:00 Urine Opiates Screen NEGATIVE (NEGATIVE) 01/16/19 17:00 Urine Methadone Screen NEGATIVE (NEGATIVE) 01/16/19 17:00 Ur Barbiturates Screen NEGATIVE (NEGATIVE) 01/16/19 17:00 Ur Tricyclics Screen NEGATIVE (NEGATIVE) 01/16/19 17:00 Ur Phencyclidine Scrn NEGATIVE (NEGATIVE) 01/16/19 17:00 Amphetamines Screen POSITIVE (NEGATIVE) H 01/16/19 17:00 U Methamphetamines Scrn POSITIVE (NEGATIVE) H 01/16/19 17:00 U Benzodiazepines Scrn NEGATIVE (NEGATIVE) 01/16/19 17:00 U Cocaine Metab Screen NEGATIVE (NEGATIVE) 01/16/19 17:00 U Cannabinoids Screen NEGATIVE (NEGATIVE) 01/16/19 17:00 Serum Ketones MODERATE (NEGATIVE) H 01/16/19 16:00 - Physical Exam Vitals and I&O: Vital Signs Temp 98.6 F 01/18/19 11:41 Pulse 90 01/18/19 11:41 Resp 18 01/18/19 11:41 BP 138/78 01/18/19 11:41 Pulse Ox 96 01/18/19 11:41 Intake & Output 01/17/19 01/18/19 01/18/19 18:59 06:59 18:59 Intake Total 600 5000 Output Total 2500 Balance 600 2500 Weight (lbs) 185 lb 185 lb Intake: Oral 600 5000 Output: Urine 2500 Other: # Voids 6 # Bowel Movements 1 Weight Source Bedscale Bedscale Active Medications: Current Medications Dextrose (D50w) 50 ml IVP PRN PRN PRN Reason: BS Below 70 & not tolerate po Stop: 03/18/19 08:36 Dextrose (Glutose 40%) 18.75 gm PO PRN PRN PRN Reason: BS Below 70 & tolerate po Stop: 03/18/19 08:36 Gabapentin (Neurontin) 300 mg PO TID EDWARD Stop: 03/19/19 20:59 Glucagon (Glucagen) 1 mg IM PRN PRN PRN Reason: BS Below 70&dextrose ineffecti Stop: 03/18/19 08:36 Sodium Chloride (Nacl 0.9%) 1,000 mls @ 125 mls/hr IV .Q8H EDWARD Stop: 03/17/19 23:29 Last Admin: 01/17/19 11:44 Dose: 125 mls/hr Insulin Glargine (Lantus Insulin) units SUBQ HS [facility] Stop: 03/19/19 20:59 Insulin Human Lispro (Humalog Insulin Sliding Scale) 0 units SUBQ ACHS EDWARD; Protocol Stop: 03/18/19 11:29 Last Admin: 01/18/19 11:46 Dose: 8 units Quetiapine Fumarate (Seroquel) 50 mg PO BID [facility]; Protocol Stop: 03/19/19 08:59 Last Admin: 01/18/19 08:34 Dose: 50 mg General: weak, alert HEENT: NC/AT, PERRLA Neck: Supple Lungs: CTAB Cardiovascular: Normal S1, Normal S2, without murmur Abdomen: soft, non-tender, non-distended, positive bowel sound Extremities: excoriation Neurological: alert - Procedures Procedures: Procedures Procedure Code Date INJECT/INFUSE NEC 99.29 12/09/12 Internal Medicine Assmt/Plan - Assessment Assessment: Uncontrolled DM2 Generalized weakness Medical non-compliance - Plan Plan: continue with monitor glucose with insulin coverage dc ivf if BS wnl dc planning in am continue current plan of care Nutritional Asmnt/Malnutr-PDOC - Dietary Evaluation Malnutrition Findings (Please click <Entered> for more info): Nutritional Asmnt/Malnutrition Start: 01/17/19 15: 14 Text: Status: Complete Freq: Protocol: Document 01/17/19 15:14 RODRICK (Rec: 01/17/19 15:20 RODRICK [id number]) Nutritional Asmnt/Malnutrition Patient General Information Nutritional Screening High Risk Diagnosis HYPERGLYCEMIA, DKA Pertinent Medical Hx/Surgical Hx [place] DM Subjective Information IA, HIGH RISK, CONSULT: HIGH BS PT F/U DOWNGRADED TO MODERATE RISK D/T GLUCOSE LEVEL TREND DOWN FROM 989 TO 119. BROUGHT PT A LATE BREAKFAST TRAY ONCE DIET ORDER WAS UPDATED. PT ATE 100% AND WAS STILL HUNGRY. BROUGHT PT A FEW ADDITIONAL ITEMS AND EXPLAINED HIS [facility] DIET ORDER, PT STATED HE UNDERSTOOD. OVERALL, PT SEEMED AGITATED AND SHORT TEMPERED, WANTED THE DOOR CLOSED AFTER VISIT. VISITED PT AFTER LUNCH WELL , PT STATED HE UNDERSTANDS HIS DIABETES AND CHECKS HIS BS REGULARLY. STATED THE DOCTOR WANTS HIS BS TO BE NO HIGHER THAN 150 AND THAT HE GETS HIS INSULIN FROM [facility], ESTIMATED HIS BS TENDS TO BE ABOVE 250. HE STATES HE IS HOMELESS AND SO IT IS HARD TO BE PARTICULAR ABOUT WHAT HE EATS. DISCUSSED AVOIDANCE OF CONCENTRATED SWEETS. PT IS A 28 YEARS OLD MALE, HOMELESS ADMITTED ON 01/16 D/T HYPERGLYCEMIA, ADMITTING BG 989. PT CAME IN THIRSTY AND AGITATED. HT: 511 WT: 190 LB (88.36 KG) BMI: 26.49 (OVERWEIGHT) GI: WNL, FLAT, SOFT BM: NOT NOTED I/O: 3360/NOT NOTED SKIN: WNL, INTACT AYDE: 22 DIET ORDER: CCHO, STANDARD CARB-60 ESTIMATED ENERGY NEEDS: ( OVERWEIGHT, BASED ON ADJ WT) [id number] KCALS (20-25 KCALS/ KG) 64-81 G PRO (0.8-1.0 G/KG) 3882-1904 ML (35-40ML/KG) PT PO INTAKE: 100% BREAKFAST AND LUNCH 01/17. Current Diet Order/ Nutrition Support CCHO 60GM Pertinent Medications D50W (PRN), GLUCOSE 40% (PRN), GLUCAGEN (PRN), INS-SS, NACL 0.9% 1000MLS @125MLS/HR @8H Pertinent Labs 01/17 HGB/HCT 13.5/39.6, GLUC 205 POC GLUCOSE (LAST 24 HOURS): 485,421,119,405, 267 01/16 HGB/HCT 12.1/36.0, NA 125 , CL 88, BUN/CR 25/1.4, GLUC 989, 999, 680 Nutritional Hx/Data Height 5 ft 11 in Height (Calculated Centimeters) 180.3 Current Weight (lbs) 190 lb Weight (Calculated Kilograms) 86.2 Weight (Calculated Grams) 36568.6 [place] Body Weight 75.3 KG % [place] Body Weight 117 Body Mass Index (BMI) 26.4 Weight Status Overweight GI Symptoms GI Symptoms None Last BM NOT NOTED Skin Integrity/Comment: WNL, INTACT Current %PO Good (75-100%) Estimated Nutritional Goals BEE in Kcals: Adj wt of IBW Calories/Kcals/Kg 1507-3721 Kcals Calculated 20-25 Protein: Adj wt of IBW Protein g/k-81 Protein Calculated 0.8-1.0 Fluid: ml 6079-6465 ML (35-40ML/KG) Nutritional Problem 2. Problem Problem LIMITED ASSESS TO FOOD Etiology R/T HOMELESSNESS Signs/Symptoms: AEB PT SELF-REPORT 1. Problem Problem ALTERED NUTRITION RELATED LAB Etiology R/T ENDOCRINE DYSFUNCTION Signs/Symptoms: AEB HX OF [place] DM AND LAB RESULT GLUC 205-999, POC GLUC 119-485 Malnutrition Related to Morbid Obesity Malnutrition related to morbid obesity No Intervention/Recommendation Comments 1.CONTINUE WITH [facility] 60GM DIET ORDERED. 2.CONTINUE ANTIHYPERGLYCEMIC MEDICATIONS PER MD ORDER. Expected Outcomes/Goals Expected Outcomes/Goals 1.PO INTAKE TO MEET AT LEAST 75% OF NUTRITIONAL NEEDS. 2.NUTRITION RELATED LABS TO TREND WNL IN 3-5 DAYS. 3.MONITOR PO INTAKE, WT, NUTRITION RELATED LABS AND SKIN INTEGRITY. 4.F/U MODERATE RISK IN 3-5 DAYS, 01/20-01/22
[2019-01-18] MEDS: Insulin Glargine 100 units/ml 10ml Vial SUBQ SCH (21:02)
[2019-01-19] MEDS: INSULIN LISPRO SLIDING SCALE 100 UNITS/ML UNIT SUBQ SCH ×4 (06:56→21:05)
--- NOTE | 2019-01-19 13:49 | Internal Medicine Prog Note ---
Internal Medicine Subjective - Subjective Service Date: 01/19/19 Patient is:: awake, denies any new complaints, stares blankly Per staff patient has:: tolerating meds Internal Medicine Objective - Results Result Diagrams: 01/17/19 04:10 01/17/19 04:10 Recent Labs: Laboratory Last Values WBC 10.1 Th/cmm (4.8-10.8) 01/17/19 04:10 RBC 4.35 Mil/cmm (4.30-5.70) 01/17/19 04:10 Hgb 13.5 gm/dL (12-16) 01/17/19 04:10 Hct 39.6 % (41.0-60) L 01/17/19 04:10 MCV 90.9 fl (80-99) 01/17/19 04:10 MCH 31.1 pg (26.0-30.0) H 01/17/19 04:10 MCHC Differential 34.2 pg (28.0-36.0) 01/17/19 04:10 RDW 14.0 % (11.5-20.0) 01/17/19 04:10 Plt Count 378 Th/cmm (150-400) 01/17/19 04:10 MPV 7.6 fl 01/17/19 04:10 Neutrophils % 57.0 % (40.0-80.0) 01/17/19 04:10 Lymphocytes % 31.5 % (20.0-50.0) 01/17/19 04:10 Monocytes % 6.6 % (2.0-10.0) 01/17/19 04:10 Eosinophils % 4.6 % (0.0-5.0) 01/17/19 04:10 Basophils % 0.3 % (0.0-2.0) 01/17/19 04:10 Sodium 138 mEq/L (136-145) D 01/17/19 04:10 Potassium 3.6 mEq/L (3.5-5.1) 01/17/19 04:10 Chloride 101 mEq/L (98-107) 01/17/19 04:10 Carbon Dioxide 23.2 mEq/L (21.0-31.0) 01/17/19 04:10 Anion Gap 17.4 (7.0-16.0) H 01/17/19 04:10 BUN 14 mg/dL (7-25) 01/17/19 04:10 Creatinine 1.0 mg/dL (0.7-1.3) 01/17/19 04:10 Est GFR ( Amer) > 60.0 ml/min (>90) 01/17/19 04:10 Est GFR (Non-Af Amer) > 60.0 ml/min 01/17/19 04:10 BUN/Creatinine Ratio 14.0 01/17/19 04:10 Glucose 205 mg/dL (70-105) H D 01/17/19 04:10 POC Glucose 296 MG/DL (70 - 105) H 01/19/19 11:33 Whole Bld Lactic Acid 1.95 mmol/L (0.60-1.99) 01/16/19 16:00 Calcium 9.2 mg/dL (8.6-10.3) 01/17/19 04:10 Total Bilirubin 1.9 mg/dL (0.3-1.0) H 01/16/19 16:00 AST 23 U/L (13-39) 01/16/19 16:00 ALT 24 U/L (7-52) 01/16/19 16:00 Alkaline Phosphatase 74 U/L (34-104) 01/16/19 16:00 Total Protein 6.5 gm/dL (6.0-8.3) 01/16/19 16:00 Albumin 4.2 gm/dL (4.2-5.5) 01/16/19 16:00 Globulin 2.3 gm/dL 01/16/19 16:00 Albumin/Globulin Ratio 1.8 (1.0-1.8) 01/16/19 16:00 Triglycerides 178 mg/dL (<150) H 01/17/19 04:10 Cholesterol 132 mg/dL (<200) 01/17/19 04:10 LDL Cholesterol Direct 44 mg/dL (75-193) L 01/17/19 04:10 HDL Cholesterol 56 mg/dL (23-92) 01/17/19 04:10 Urine Source CLEAN C 01/16/19 17:00 Urine Color YELLOW 01/16/19 17:00 Urine Clarity CLEAR (CLEAR) 01/16/19 17:00 Urine pH 5.5 (4.6 - 8.0) 01/16/19 17:00 Ur Specific [place] 1.010 (1.005-1.030) 01/16/19 17:00 Urine Protein NEGATIVE mg/dL (NEGATIVE) 01/16/19 17:00 Urine Glucose (UA) >=1000 mg/dL (NEGATIVE) H 01/16/19 17:00 Urine Ketones 40 mg/dL (NEGATIVE) H 01/16/19 17:00 Urine Blood NEGATIVE (NEGATIVE) 01/16/19 17:00 Urine Nitrate NEGATIVE (NEGATIVE) 01/16/19 17:00 Urine Bilirubin NEGATIVE (NEGATIVE) 01/16/19 17:00 Urine Urobilinogen 0.2 E.U./dL (0.2 - 1.0) 01/16/19 17:00 Ur Leukocyte Esterase NEGATIVE (NEGATIVE) 01/16/19 17:00 Urine RBC NONE SEEN /hpf (0-5) 01/16/19 17:00 Urine WBC NONE SEEN /hpf (0-5) 01/16/19 17:00 Ur Epithelial Cells NONE SEEN /lpf (FEW) 01/16/19 17:00 Uric Acid Crystals FEW /hpf (NONE SEEN) 01/16/19 17:00 Urine Bacteria NONE SEEN /hpf (NONE SEEN) 01/16/19 17:00 Urine Opiates Screen NEGATIVE (NEGATIVE) 01/16/19 17:00 Urine Methadone Screen NEGATIVE (NEGATIVE) 01/16/19 17:00 Ur Barbiturates Screen NEGATIVE (NEGATIVE) 01/16/19 17:00 Ur Tricyclics Screen NEGATIVE (NEGATIVE) 01/16/19 17:00 Ur Phencyclidine Scrn NEGATIVE (NEGATIVE) 01/16/19 17:00 Amphetamines Screen POSITIVE (NEGATIVE) H 01/16/19 17:00 U Methamphetamines Scrn POSITIVE (NEGATIVE) H 01/16/19 17:00 U Benzodiazepines Scrn NEGATIVE (NEGATIVE) 01/16/19 17:00 U Cocaine Metab Screen NEGATIVE (NEGATIVE) 01/16/19 17:00 U Cannabinoids Screen NEGATIVE (NEGATIVE) 01/16/19 17:00 Serum Ketones MODERATE (NEGATIVE) H 01/16/19 16:00 - Physical Exam Vitals and I&O: Vital Signs Temp 97.4 F 01/19/19 11:57 Pulse 79 01/19/19 11:57 Resp 18 01/19/19 12:00 BP 137/94 01/19/19 11:57 Pulse Ox 99 01/19/19 11:57 Intake & Output 01/18/19 01/19/19 01/19/19 18:59 06:59 18:59 Intake Total 3200 850 Output Total 1650 1600 Balance 1550 -750 Weight (lbs) 185 lb 185 lb Intake: Oral 3200 850 Output: Urine 1650 1600 Other: # Bowel Movements 0 Weight Source Bedscale Bedscale Active Medications: Current Medications Dextrose (D50w) 50 ml IVP PRN PRN PRN Reason: BS Below 70 & not tolerate po Stop: 03/18/19 08:36 Dextrose (Glutose 40%) 18.75 gm PO PRN PRN PRN Reason: BS Below 70 & tolerate po Stop: 03/18/19 08:36 Gabapentin (Neurontin) 300 mg PO TID EDWARD Stop: 03/19/19 20:59 Last Admin: 01/19/19 13:03 Dose: 300 mg Glucagon (Glucagen) 1 mg IM PRN PRN PRN Reason: BS Below 70&dextrose ineffecti Stop: 03/18/19 08:36 Insulin Glargine (Lantus Insulin) 35 units SUBQ HS EDWARD Stop: 03/19/19 20:59 Last Admin: 01/18/19 21:02 Dose: 35 units Insulin Human Lispro (Humalog Insulin Sliding Scale) 0 units SUBQ ACHS [facility]; Protocol Stop: 03/18/19 11:29 Last Admin: 01/19/19 11:44 Dose: 6 units Quetiapine Fumarate (Seroquel) 50 mg PO BID [facility]; Protocol Stop: 03/19/19 08:59 Last Admin: 01/19/19 08:02 Dose: 50 mg General: weak, alert HEENT: NC/AT, PERRLA Neck: Supple Lungs: CTAB Cardiovascular: Normal S1, Normal S2, without murmur Abdomen: soft, non-tender, non-distended, positive bowel sound Extremities: excoriation Neurological: alert - Procedures Procedures: Procedures Procedure Code Date INJECT/INFUSE NEC 99.29 12/09/12 Internal Medicine Assmt/Plan - Assessment Assessment: Uncontrolled DM2 Generalized weakness Medical non-compliance - Plan Plan: continue with monitor glucose with insulin coverage dc once cleared by psych continue current plan of care Nutritional Asmnt/Malnutr-PDOC - Dietary Evaluation Malnutrition Findings (Please click <Entered> for more info): Nutritional Asmnt/Malnutrition Start: 01/17/19 15: 14 Text: Status: Complete Freq: Protocol: Document 01/17/19 15:14 RODRICK (Rec: 01/17/19 15:20 RODRICK [id number]) Nutritional Asmnt/Malnutrition Patient General Information Nutritional Screening High Risk Diagnosis HYPERGLYCEMIA, DKA Pertinent Medical Hx/Surgical Hx [place] DM Subjective Information IA, HIGH RISK, CONSULT: HIGH BS PT F/U DOWNGRADED TO MODERATE RISK D/T GLUCOSE LEVEL TREND DOWN FROM 989 TO 119. BROUGHT PT A LATE BREAKFAST TRAY ONCE DIET ORDER WAS UPDATED. PT ATE 100% AND WAS STILL HUNGRY. BROUGHT PT A FEW ADDITIONAL ITEMS AND EXPLAINED HIS [facility] DIET ORDER, PT STATED HE UNDERSTOOD. OVERALL, PT SEEMED AGITATED AND SHORT TEMPERED, WANTED THE DOOR CLOSED AFTER VISIT. VISITED PT AFTER LUNCH WELL , PT STATED HE UNDERSTANDS HIS DIABETES AND CHECKS HIS BS REGULARLY. STATED THE DOCTOR WANTS HIS BS TO BE NO HIGHER THAN 150 AND THAT HE GETS HIS INSULIN FROM [facility], ESTIMATED HIS BS TENDS TO BE ABOVE 250. HE STATES HE IS HOMELESS AND SO IT IS HARD TO BE PARTICULAR ABOUT WHAT HE EATS. DISCUSSED AVOIDANCE OF CONCENTRATED SWEETS. PT IS A 28 YEARS OLD MALE, HOMELESS ADMITTED ON 01/16 D/T HYPERGLYCEMIA, ADMITTING BG 989. PT CAME IN THIRSTY AND AGITATED. HT: 511 WT: 190 LB (88.36 KG) BMI: 26.49 (OVERWEIGHT) GI: WNL, FLAT, SOFT BM: NOT NOTED I/O: 3360/NOT NOTED SKIN: WNL, INTACT AYDE: 22 DIET ORDER: [facility], STANDARD CARB-60 ESTIMATED ENERGY NEEDS: ( OVERWEIGHT, BASED ON ADJ WT) 0190-7339 KCALS (20-25 KCALS/ KG) 64-81 G PRO (0.8-1.0 G/KG) 3480-9540 ML (35-40ML/KG) PT PO INTAKE: 100% BREAKFAST AND LUNCH 01/17. Current Diet Order/ Nutrition Support CCHO 60GM Pertinent Medications D50W (PRN), GLUCOSE 40% (PRN), GLUCAGEN (PRN), INS-SS, NACL 0.9% 1000MLS @125MLS/HR @8H Pertinent Labs 01/17 HGB/HCT 13.5/39.6, GLUC 205 POC GLUCOSE (LAST 24 HOURS): 485,421,119,405, 267 7/14 HGB/HCT 12.1/36.0, NA 125 , CL 88, BUN/CR 25/1.4, GLUC 989, 999, 680 Nutritional Hx/Data Height 5 ft 11 in Height (Calculated Centimeters) 180.3 Current Weight (lbs) 190 lb Weight (Calculated Kilograms) 86.2 Weight (Calculated Grams) 07765.6 [place] Body Weight 75.3 KG % [place] Body Weight 117 Body Mass Index (BMI) 26.4 Weight Status Overweight GI Symptoms GI Symptoms None Last BM NOT NOTED Skin Integrity/Comment: WNL, INTACT Current %PO Good (75-100%) Estimated Nutritional Goals BEE in Kcals: Adj wt of IBW Calories/Kcals/Kg 9483-6546 Kcals Calculated 20-25 Protein: Adj wt of IBW Protein g/k-81 Protein Calculated 0.8-1.0 Fluid: ml 7922-8185 ML (35-40ML/KG) Nutritional Problem 2. Problem Problem LIMITED ASSESS TO FOOD Etiology R/T HOMELESSNESS Signs/Symptoms: AEB PT SELF-REPORT 1. Problem Problem ALTERED NUTRITION RELATED LAB Etiology R/T ENDOCRINE DYSFUNCTION Signs/Symptoms: AEB HX OF [place] DM AND LAB RESULT GLUC 205-999, POC GLUC 119-485 Malnutrition Related to Morbid Obesity Malnutrition related to morbid obesity No Intervention/Recommendation Comments 1.CONTINUE WITH [facility] 60GM DIET ORDERED. 2.CONTINUE ANTIHYPERGLYCEMIC MEDICATIONS PER MD ORDER. Expected Outcomes/Goals Expected Outcomes/Goals 1.PO INTAKE TO MEET AT LEAST 75% OF NUTRITIONAL NEEDS. 2.NUTRITION RELATED LABS TO TREND WNL IN 3-5 DAYS. 3.MONITOR PO INTAKE, WT, NUTRITION RELATED LABS AND SKIN INTEGRITY. 4.F/U MODERATE RISK IN 3-5 DAYS, 01/20-01/22
[2019-01-19] MEDS: Insulin Glargine 100 units/ml 10ml Vial SUBQ SCH (21:06)
[2019-01-20] MEDS: INSULIN LISPRO SLIDING SCALE 100 UNITS/ML UNIT SUBQ SCH (06:45)
--- NOTE | 2019-01-21 02:01 | Progress Notes ---
DATE: 01/20/2019 SUBJECTIVE: Chart reviewed and the patient interviewed. Also discussed the patient's condition with the staff and reviewed records and labs. The patient's affect is brighter. The patient is less depressed. The patient is interacting more. He does not have any symptoms or signs of withdrawal of methamphetamine except slightly tired. The patient continued to comply with taking his Seroquel with no side effects. Also, during interview, although the patient stated that he is sometimes suicidal, yet he is from previous hospitalizations, it always say that in order to stay longer in hospitals. ASSESSMENT: The patient is not psychotic or suicidal, but he is high risk relapse. RECOMMENDATIONS: Recommend to refer the patient to a rehab program and also refer to a [place] health care facility or sober living placement. [facility]# [id number]
== END 2019-01-20 11:09 | disposition home or self-care (01) | DRG 420 ==
LOC: ER 15:51 → TELE 20:35
PROVIDERS: ADMIT Internal Medicine; ATTEND Internal Medicine
DX: E11.10 Type 2 diabetes mellitus with ketoacidosis without coma (principal); F20.9 Schizophrenia, unspecified; F15.159 Other stimulant abuse with stimulant-induced psychotic disorder, unspecified; Z59.0 Homelessness; Z91.14 Patient's other noncompliance with medication regimen
CPT/HCPCS: 36415-UA; 80048-TC; 80053-TC; 80061-TC; 80307; 81001-TC; 82010-TC; 82947-TC; 82948-90; 83036-90; 83605; 85025-TC; 96374; J1815; J7030; Z7610

== ENCOUNTER 2019-01-26 22:13 | Emergency (ER) | payer MEDICAID ==
[2019-01-26 23:18] LABS: % BASOPHILS 1.1 % (0.0-2.0); % EOSINOPHILS 5.2 % (0.0-5.0); % LYMPHOCYTES 39.6 % (20.0-50.0); % MONOCYTES 9.2 % (2.0-10.0); % NEUTROPHILS 44.9 % (40.0-80.0); BASOPHILE ABSOLUTE 0.1 Th/cumm (0-0.2); EOSINOPHILE ABSOLUTE 0.3 Th/cmm (0.1-0.4); HEMATOCRIT 37.6 % (41.0-60); HEMOGLOBIN 12.8 gm/dL (12-16); LYMPHOCYTE ABSOLUTE 2.6 Th/cmm (1.5-3.0); MEAN CELL VOLUME 92.2 fl (80-99); MEAN CORPUSCULAR HEMOGLOBIN 31.5 pg (26.0-30.0); MEAN CORPUSCULAR HGB CONC 34.1 pg (28.0-36.0); MONOCYTE ABSOLUTE 0.6 Th/cmm (0.3-1.0); PLATELET COUNT 359 Th/cmm (150-400); RED BLOOD COUNT 4.08 Mil/cmm (4.30-5.70); RED CELL DISTRIBUTION WIDTH 13.8 % (11.5-20.0); WHITE BLOOD COUNT 6.6 Th/cmm (4.8-10.8)
[2019-01-26 23:32] LABS: ALB/GLOB RATIO 1.8 (1.0-1.8); ALBUMIN 3.6 gm/dL (4.2-5.5); ALKALINE PHOSPHATASE 58 U/L (34-104); BILIRUBIN,TOTAL 0.5 mg/dL (0.3-1.0); BUN - UREA NITROGEN 13 mg/dL (7-25); CALCIUM SERUM 8.9 mg/dL (8.6-10.3); CARBON DIOXIDE 28.5 mEq/L (21.0-31.0); CHLORIDE 106 mEq/L (98-107); CREATININE - SERUM 0.9 mg/dL (0.7-1.3); GFR AFRICAN-AMERICAN > 60.0 ml/min (>90); GFR NON AFRICAN-AMERICAN > 60.0 ml/min; POTASSIUM SERUM 3.5 mEq/L (3.5-5.1); SGOT 22 U/L (13-39); SGPT/ALT 19 U/L (7-52); SODIUM SERUM 140 mEq/L (136-145); TOTAL PROTEIN,SERUM 5.6 gm/dL (6.0-8.3)
[2019-01-26 23:42] LABS: ACETAMINOPHEN < 10.0 ug/mL (10.0-30.0); GLUCOSE 49 mg/dL (70-105)
--- NOTE | 2019-01-26 23:58 | ED Physician Chart ---
ED Chief Complaint/HPI - Patient Information Date Seen:: 01/26/19 Time Seen:: 23:54 Chief Complaint:: SUICIDAL History of Present Illness:: 28 YR OLD MALE WITH IDDM WHOTRIED TO OVERDCE ON INSLIN PT CMES IN WITH HYOGLYCEMIA IN THE 4O'S.PT REFUSED IV AND WAS GIVEN GLUCAGON PASTE TWICE AND GIVEN PO INTAKE Allergies:: Allergies Allergy/AdvReac Type Severity Reaction Status Date / Time No Known Allergies Allergy Verified 12/14/18 01:42 Vitals:: Vital Signs - 8 hr 01/26/19 22:15 Temp 98 F HR 100 RR 19 BP 147/90 O2 Sat % 100 ED Review of Systems - Review of Systems General/Constitutional: No fever, No chills, No weight loss, No weakness, No diaphoresis, No edema, No loss of appetite Skin: No skin lesions, No rash, No bruising Head: No headache, No light-headedness Eyes: No loss of vision, No pain, No diplopia ENT: No earache, No nasal drainage, No sore throat, No tinnitus Neck: No neck pain, No swelling, No thyromegaly, No stiffness, No mass noted Cardio Vascular: No chest pain, No palpitations, No PND, No orthopnea, No edema Pulmonary: No SOB, No cough, No sputum, No wheezing GI: No nausea, No vomiting, No diarrhea, No pain, No melena, No hematochezia, No constipation, No hematemesis G/U: No dysuria, No frequency, No hematuria Musculoskeletal: No bone or joint pain, No back pain, No muscle pain Endocrine: No polyuria, No polydipsia Psychiatric: No prior psych history, No depression, No anxiety, No suicidal ideation Hematopoietic: No bruising, No lymphadenopathy Allergic/Immuno: No urticaria, No angioedema Neurological: No syncope, No focal symptoms, No weakness, No paresthesia, No headache, No seizure, No dizziness, No confusion, No vertigo Family Medical History - Family Member Mother History Unknown: Yes Ethnicity: Non- Living Status: Still Living Hx Family Cancer: No Hx Family Coronary Artery Disease: No Hx Family Congestive Heart Failure: No Hx Family Hypertension: No Hx Family Stroke: No Hx Family Diabetes: No Hx Family Seizures: No Hx Family Dementia: No Hx Family AIDS: No Hx Family HIV: No Hx Family COPD: No Hx Family Hepatitis: No Hx Family Psychiatric Problems: No Hx Family Tuberculosis: No ED Physical Exam - Physical Examination General/Constitutional: Awake, Well-developed, well-nourished, Alert, No distress, GCS 15, Non-toxic appearing, Ambulatory Head: Atraumatic Eyes: Lids, conjuctiva normal, PERRL, EOMI Skin: Nl inspection, No rash, No skin lesions, No ecchymosis, Well hydrated, No lymphadenopathy ENMT: External ears, nose nl, Nasal exam nl, Lips, teeth, gums nl Neck: Nontender, Full ROM w/o pain, No JVD, No nuchal rigidity, No bruit, No mass, No stridor Respiratory: Nl effort/Exclusion, Clear to Auscultation, No Wheeze/Rhonchi/Rales Cardio Vascular: RRR, No murmur, gallop, rubs, NL S1 S2 GI: No tenderness/rebounding/guarding, No organomegaly, No hernia, Normal BS's, Nondistended, No mass/bruits, No McBurney tenderness : No CVA tenderness Extremities: No tenderness or effusion, Full ROM, normal strength in all extremities, No edema, Normal digits & nails Neuro/Psych: Alert/oriented, DTR's symmetric, Normal sensory exam, Normal motor strength, Judgement/insight normal, Mood normal, Normal gait, No focal deficits Misc: Normal back, No paraspinal tenderness ED Labs/Radiology/EKG Results - Lab Results Results: Laboratory Tests 01/26/19 01/26/19 01/26/19 22:20 23:10 23:10 WBC 6.6 RBC 4.08 L Hgb 12.8 Hct 37.6 L MCV 92.2 MCH 31.5 H MCHC Differential 34.1 RDW 13.8 Plt Count 359 MPV 7.7 Neutrophils % 44.9 Lymphocytes % 39.6 Monocytes % 9.2 Eosinophils % 5.2 H Basophils % 1.1 Sodium 140 Potassium 3.5 Chloride 106 Carbon Dioxide 28.5 Anion Gap 9.0 BUN 13 Creatinine 0.9 Est GFR ( Amer) > 60.0 Est GFR (Non-Af Amer) > 60.0 BUN/Creatinine Ratio 14.4 Glucose 49 L* POC Glucose 81 Calcium 8.9 Total Bilirubin 0.5 AST 22 ALT 19 Alkaline Phosphatase 58 Total Protein 5.6 L Albumin 3.6 L Globulin 2.0 Albumin/Globulin Ratio 1.8 Salicylates < 25.0 L Acetaminophen < 10.0 L Ethyl Alcohol < 10 01/26/19 23:43 WBC RBC Hgb Hct MCV MCH MCHC Differential RDW Plt Count MPV Neutrophils % Lymphocytes % Monocytes % Eosinophils % Basophils % Sodium Potassium Chloride Carbon Dioxide Anion Gap BUN Creatinine Est GFR ( Amer) Est GFR (Non-Af Amer) BUN/Creatinine Ratio Glucose POC Glucose 42 L Calcium Total Bilirubin AST ALT Alkaline Phosphatase Total Protein Albumin Globulin Albumin/Globulin Ratio Salicylates Acetaminophen Ethyl Alcohol ED Septic Shock - . Is Septic Shock (SBP<90, OR Lactate>4 mmol\L) present?: No - <6hrs of presentation: Vital Signs: Vital Signs - 8 hr 01/26/19 22:15 Temp 98 F HR 100 RR 19 BP 147/90 O2 Sat % 100 ED Reassessment (Disposition) - Reassessment Reassessment:: SUICIDAL - Diagnosis Diagnosis:: SUICIDAL IDDM - Patient Disposition Condition at Disposition:: Stable
[2019-01-27 01:32] LABS: URINE SOURCE RANDOM
[2019-01-27 01:34] LABS: URINE BILIRUBIN NEGATIVE (NEGATIVE); URINE BLOOD NEGATIVE (NEGATIVE); URINE GLUCOSE (UA) NEGATIVE (NEGATIVE); URINE KETONE NEGATIVE (NEGATIVE); URINE LEUKOCYTE ESTERASE NEGATIVE (NEGATIVE); URINE MICROSCOPIC INDICATED? YES; URINE NITRATE NEGATIVE (NEGATIVE); URINE PROTEIN TRACE mg/dL (NEGATIVE)
[2019-01-27 01:41] LABS: URINE CLARITY CLEAR (CLEAR); URINE COLOR YELLOW
[2019-01-27 01:42] LABS: URINE BACTERIA NONE SEEN /hpf (NONE SEEN); URINE EPITHELIAL CELLS NONE SEEN /lpf (FEW); URINE RBC NONE SEEN /hpf (0-5); URINE WBC NONE SEEN /hpf (0-5)
[2019-01-27 01:46] LABS: AMPHETAMINE URINE POSITIVE (NEGATIVE); METHAMPHETAMINES QUAL URINE POSITIVE (NEGATIVE)
[2019-01-27 01:47] LABS: BARBITURATES URINE NEGATIVE (NEGATIVE); BENZODIAZEPINES QUAL URINE NEGATIVE (NEGATIVE); CANNABINOID THC NEGATIVE (NEGATIVE); COCAINE METABOLITE QUAL URINE NEGATIVE (NEGATIVE); METHADONE URINE NEGATIVE (NEGATIVE); OPIATES (MORPHINE) QUAL. URINE NEGATIVE (NEGATIVE); PHENCYCLIDINE (PCP) URINE NEGATIVE (NEGATIVE); TRICYCLICS (TCA) QUAL. URINE NEGATIVE (NEGATIVE)
[2019-01-27] MEDS ORDERED: Sulfamethoxazole/TMP 800/160mg Tab PO ONE (18:43)
[2019-01-29] MEDS ORDERED: INSULIN HUMAN REGULAR 100 UNIT/ML VIAL SUBQ ONE (10:17)
[2019-01-29] MEDS: INSULIN HUMAN REGULAR 100 UNIT/ML VIAL SUBQ SCH ×3 (10:30→20:52)
[2019-01-30] MEDS: INSULIN HUMAN REGULAR 100 UNIT/ML VIAL SUBQ SCH (06:36)
== END 2019-01-30 08:25 | disposition home or self-care (01) ==
LOC: ER 22:13
DX: E11.9 Type 2 diabetes mellitus without complications (principal); R45.851 Suicidal ideations; H66.41 Suppurative otitis media, unspecified, right ear; Z79.4 Long term (current) use of insulin
CPT/HCPCS: 36415-UA; 80053-TC; 80307; 80320-TC; 80329-TC; 81001-TC; 82948-90; 85025-TC; J2001; Z7610

== ENCOUNTER 2019-01-31 16:15 | Emergency (ER) | payer MEDICAID ==
--- NOTE | 2019-01-31 16:26 | ED Physician Chart ---
ED Chief Complaint/HPI - Patient Information Date Seen:: 01/31/19 Time Seen:: 16:20 Chief Complaint:: Feeling lightheaded History of Present Illness:: Pt walked in because he has felt lightheaded after he gave himself insulin at about 3:30 pm today but has not had much dietary intake. No fever. No N/V/D. No abdominal pain or discomfort. No other bodily pain or discomfort. Allergies:: Allergies Allergy/AdvReac Type Severity Reaction Status Date / Time No Known Allergies Allergy Verified 12/14/18 01:42 Vitals:: see Nurse Note. Historian:: Patient Family MD/PCP:: Dr. Fairchild. LMP:: N/A Review:: Nurse's Note Reviewed ED Review of Systems - Review of Systems General/Constitutional: No fever, No weight loss, No loss of appetite Skin: No skin lesions, No rash, No bruising Head: No headache, Light headed Eyes: No loss of vision, No pain, No diplopia ENT: No earache, No nasal drainage, No sore throat Neck: No neck pain, No swelling, No stiffness Cardio Vascular: No chest pain, No edema Pulmonary: No SOB, No cough, No wheezing GI: No nausea, No vomiting, No diarrhea, No pain, No melena, No hematochezia, No constipation G/U: No dysuria, No frequency, No hematuria Musculoskeletal: No bone or joint pain Psychiatric: No depression, No suicidal ideation, No homicidal ideation Hematopoietic: No bruising, No lymphadenopathy Allergic/Immuno: No angioedema Neurological: No syncope, No focal symptoms, No weakness, No paresthesia, No headache, No seizure, No confusion ED Past Medical History - Past Medical History Past Medical History: HTN, DM, Other Social History: Smoker (Pt has been informed about health risks associated with tobacco use and has been advised to stop. Pt has been encouraged to enroll in a smoking cessation program. 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 Pt has been informed about health risks associated with illicit drug use and has been advised to stop. Pt has been encouraged to enroll in a drug rehab. program. Pt acknowledges understanding.), Single, Homeless Employment:: unemployed. Surgical History: other (? submandibular salivary gland surgery about 3 years.) Psychiatricy History: Depression Medication: Reviewed Family Medical History - Family Member Mother History Unknown: Yes Ethnicity: Non- Living Status: Still Living Hx Family Cancer: No Hx Family Coronary Artery Disease: No Hx Family Congestive Heart Failure: No Hx Family Hypertension: No Hx Family Stroke: No Hx Family Diabetes: No Hx Family Seizures: No Hx Family Dementia: No Hx Family AIDS: No Hx Family HIV: No Hx Family COPD: No Hx Family Hepatitis: No Hx Family Psychiatric Problems: No Hx Family Tuberculosis: No ED Physical Exam - Physical Examination General/Constitutional: Awake, Well-developed, well-nourished (male), Alert, No distress, Non-toxic appearing, Ambulatory Other Gen/Cons comments:: Breathes comfortably and speaks clearly. Head: Atraumatic Eyes: Lids, conjuctiva normal, PERRL, EOMI Skin: Nl inspection, No skin lesions, Well hydrated, No lymphadenopathy ENMT: External ears, nose nl, Nasal exam nl, Oropharynx nl Neck: Nontender, Full ROM w/o pain, No JVD, No nuchal rigidity, No mass, No stridor Respiratory: Nl effort/Exclusion, Clear to Auscultation, No Wheeze/Rhonchi/Rales Cardio Vascular: No murmur, gallop, rubs Other Cardio Vascular comments:: Regular rhythm with mild tachycardia. HR 108. GI: No tenderness/rebounding/guarding, No organomegaly, Normal BS's, Nondistended, No mass/bruits, No McBurney tenderness Extremities: No tenderness or effusion, No edema Neuro/Psych: Alert/oriented (oriented x 3), No focal deficits ED Labs/Radiology/EKG Results - EKG Interpretations EKG Time:: 16:37 Rate & Rhythm: Sinus tachycardia with VR 115 Comments:: LAE. NSSTT changes. ED Septic Shock - . Is Septic Shock (SBP<90, OR Lactate>4 mmol\L) present?: No ED Reassessment (Disposition) - Reassessment Reassessment:: 1640 Pt has been repeatedly evaluated. Pt remains stable and overall comfortable. Pt had Accuchek 37 on arrival. Pt was given D50 immediately with the Accuchek result. 1705 Pt repeat Accuchek was 85. Pt felt better. I have just informed that pt decided to leave and just walked out. Pt did not wait to discuss with me prior to his departure. Pt eloped prior to completion of this ER visit. Reassessment Condition:: Improved - Diagnosis Diagnosis:: DM with insulin reaction, transient hypoglycemia. Stable and improved. - Patient Disposition Discharge/Transfer:: [facility] Time:: 17:00 Condition at Disposition:: Stable, Improved
[2019-01-31] MEDS ORDERED: Dextrose 50% 50 mL Abboject IVP ONE (16:27)
[2019-01-31] MEDS ORDERED: Dextrose 50% 50 mL Abboject IVP STA (16:28)
[2019-01-31] MEDS ORDERED: D5-0.45NS 1,000 ML IV ONE (16:31)
[2019-01-31 16:51] LABS: % BASOPHILS 1.5 % (0.0-2.0); % EOSINOPHILS 1.5 % (0.0-5.0); % LYMPHOCYTES 23.1 % (20.0-50.0); % MONOCYTES 10.1 % (2.0-10.0); % NEUTROPHILS 63.8 % (40.0-80.0); BASOPHILE ABSOLUTE 0.2 Th/cumm (0-0.2); EOSINOPHILE ABSOLUTE 0.2 Th/cmm (0.1-0.4); HEMATOCRIT 39.2 % (41.0-60); HEMOGLOBIN 13.3 gm/dL (12-16); LYMPHOCYTE ABSOLUTE 2.5 Th/cmm (1.5-3.0); MEAN CELL VOLUME 91.5 fl (80-99); MEAN CORPUSCULAR HGB CONC 33.9 pg (28.0-36.0); MONOCYTE ABSOLUTE 1.1 Th/cmm (0.3-1.0); NEUTROPHILE ABSOLUTE 6.8 Th/cmm (1.8-8.0); PLATELET COUNT 474 Th/cmm (150-400); RED BLOOD COUNT 4.28 Mil/cmm (4.30-5.70); RED CELL DISTRIBUTION WIDTH 14.2 % (11.5-20.0); WHITE BLOOD COUNT 10.8 Th/cmm (4.8-10.8)
[2019-01-31 17:03] LABS: INR 0.92 (0.5-1.4)
[2019-01-31 17:07] LABS: ALB/GLOB RATIO 1.7 (1.0-1.8); ALBUMIN 4.4 gm/dL (4.2-5.5); ALKALINE PHOSPHATASE 65 U/L (34-104); ANION GAP 13.2 (7.0-16.0); BILIRUBIN,TOTAL 0.6 mg/dL (0.3-1.0); BUN - UREA NITROGEN 31 mg/dL (7-25); CALCIUM SERUM 9.8 mg/dL (8.6-10.3); CARBON DIOXIDE 27.8 mEq/L (21.0-31.0); CHLORIDE 101 mEq/L (98-107); CREATININE - SERUM 1.1 mg/dL (0.7-1.3); GFR AFRICAN-AMERICAN > 60.0 ml/min (>90); GFR NON AFRICAN-AMERICAN > 60.0 ml/min; GLUCOSE 134 mg/dL (70-105); SGOT 22 U/L (13-39); SGPT/ALT 30 U/L (7-52); SODIUM SERUM 139 mEq/L (136-145)
== END 2019-01-31 17:19 | disposition left against medical advice (07) ==
LOC: ER 16:15
DX: E09.69 Drug or chemical induced diabetes mellitus with other specified complication (principal); T38.3X5A Adverse effect of insulin and oral hypoglycemic [antidiabetic] drugs, initial encounter; I10 Essential (primary) hypertension; F17.210 Nicotine dependence, cigarettes, uncomplicated; Y92.89 Other specified places as the place of occurrence of the external cause
CPT/HCPCS: 36415-UA; 80053-TC; 80320-TC; 82948-90; 84484-TC; 85025-TC; 85610-TC; 93005; 96374; J7799

== ENCOUNTER 2019-02-01 17:11 | Emergency (ER) | payer MEDICAID ==
--- NOTE | 2019-02-01 18:49 | ED Physician Chart ---
ED Chief Complaint/HPI - Patient Information Date Seen:: 02/01/19 Time Seen:: 17:30 Chief Complaint:: Weakness History of Present Illness:: onset x one hour COPYMAN of weakness which resolved upon ER arrival; pt wants to be checked for low blood sugar; pt denies trauma, LOC, ALOC, AMS, decreased activity, visual or gait changes, dizziness, paresthesias, vertigo, H/As, S/T, neck pain, cough, C/P, SOB, Abd. Pain, A/N/V/D/C, fever, chills, bleeding, or urinary s/s; pt's last tetanus shot: < 5 years; UTD; pt is eating and urinating well; pt last urinated one hour COPYMAN Allergies:: Allergies Allergy/AdvReac Type Severity Reaction Status Date / Time No Known Allergies Allergy Verified 12/14/18 01:42 Vitals:: Vital Signs - 8 hr 02/01/19 02/01/19 17:36 17:54 Temp 98.2 F 98.2 F HR 90 90 RR 16 16 BP 156/101 156/101 O2 Sat % 97 Historian:: Patient Review:: Nurse's Note Reviewed, Old Chart Reviewed ED Review of Systems - Review of Systems General/Constitutional: No fever, No chills, No weight loss, Weakness, No diaphoresis, No edema, No loss of appetite Skin: No skin lesions, No rash, No bruising Head: No headache, No light-headedness Eyes: No loss of vision, No pain, No diplopia ENT: No earache, No nasal drainage, No sore throat, No tinnitus Neck: No neck pain, No swelling, No thyromegaly, No stiffness, No mass noted Cardio Vascular: No chest pain, No palpitations, No PND, No orthopnea, No edema Pulmonary: No SOB, No cough, No sputum, No wheezing GI: No nausea, No vomiting, No diarrhea, No pain, No melena, No hematochezia, No constipation, No hematemesis G/U: No dysuria, No frequency, No hematuria, No nacturia Musculoskeletal: No bone or joint pain, No back pain, No muscle pain Endocrine: No polyuria, No polydipsia Psychiatric: No prior psych history, No depression, No anxiety, No suicidal ideation, No homicidal ideation, No auditory hallucination, No visual hallucination Hematopoietic: No bruising, No lymphadenopathy Allergic/Immuno: No urticaria, No angioedema Neurological: No syncope, No focal symptoms, Weakness, No paresthesia, No headache, No seizure, No dizziness, No confusion, No vertigo ED Past Medical History - Past Medical History Obtainable: Yes Past Medical History: HTN, DM Family History: Diabetes Melitus, HTN Social History: Non Smoker, No Alcohol, No Drug Use, Single, Homeless Surgical History: None Psychiatricy History: None Medication: Reviewed Family Medical History - Family Member Mother History Unknown: Yes Ethnicity: Non- Living Status: Still Living Hx Family Cancer: No Hx Family Coronary Artery Disease: No Hx Family Congestive Heart Failure: No Hx Family Hypertension: No Hx Family Stroke: No Hx Family Diabetes: No Hx Family Seizures: No Hx Family Dementia: No Hx Family AIDS: No Hx Family HIV: No Hx Family COPD: No Hx Family Hepatitis: No Hx Family Psychiatric Problems: No Hx Family Tuberculosis: No ED Physical Exam - Physical Examination General/Constitutional: Awake, Well-developed, well-nourished, Alert, No distress, GCS 15, Non-toxic appearing, Ambulatory Head: Atraumatic Eyes: Lids, conjuctiva normal, PERRL, EOMI Other Eyes comments:: PERRLA; Fundi: benign; EOMs: WNL Skin: Nl inspection, No rash, No skin lesions, No ecchymosis, Well hydrated, No lymphadenopathy Other Skin comments:: good turgor with MMM ENMT: External ears, nose nl, TM canals nl, Nasal exam nl, Lips, teeth, gums nl , Oropharynx nl, Tonsils nl Other ENMT comments:: TMJs: WNL Neck: Nontender, Full ROM w/o pain, No JVD, No nuchal rigidity, No bruit, No mass, No stridor Other Neck comments:: supple; no meningeal signs; no cervical tenderness; no bruits Respiratory: Nl effort/Exclusion, Clear to Auscultation, No Wheeze/Rhonchi/Rales Cardio Vascular: RRR, No murmur, gallop, rubs, NL S1 S2, Carotid/Femoral/Distal pulses equal bilaterally GI: No tenderness/rebounding/guarding, No organomegaly, No hernia, Normal BS's, Nondistended, No mass/bruits, No McBurney tenderness, Rectum exam nl Other GI comments:: no pulsatile masses; Stool: -OB; no tenderness : No CVA tenderness Extremities: No tenderness or effusion, Full ROM, normal strength in all extremities, No edema, Normal digits & nails Neuro/Psych: Alert/oriented, DTR's symmetric, Normal sensory exam, Normal motor strength, Judgement/insight normal, Mood normal, Normal gait, No focal deficits Other Neuro/Psych comments:: no focal signs Misc: Normal back, No paraspinal tenderness ED Labs/Radiology/EKG Results - Lab Results Comments:: deferred by pt - Radiology Results Comments:: deferred by pt - EKG Interpretations Comments:: deferred by pt ED Septic Shock - . Is Septic Shock (SBP<90, OR Lactate>4 mmol\L) present?: No - <6hrs of presentation: Vital Signs: Vital Signs - 8 hr 02/01/19 02/01/19 17:36 17:54 Temp 98.2 F 98.2 F HR 90 90 RR 16 16 BP 156/101 156/101 O2 Sat % 97 ED Reassessment (Disposition) - Reassessment Reassessment:: Accu-check: Blood Sugar; 250; Final BP: 134/88; pt chose to sign out AMA; pt tolerated po fluids well in ER; pt is asymptomatic upon discharge/AMA Reassessment Condition:: Improved - Diagnosis Diagnosis:: Hypertension; Weakness-resolved; IDDM; Diabetes Mellitus - Aftercare/Follow up Instructions Aftercare/Follow-Up Instructions:: Counseled pt regarding lab results/diagnosis & need follow up, Refer to Discharge Instructions, Counseled pt & family regarding lab results/diagnosis & need follow up Notes:: Be compliant with ADA-ROBERTA Diet, Medications, and Activity; Have Blood Pressure, HgA1C, and Blood Glucose (FBS) re-checked in one cday by PMD - Patient Disposition Discharge/Transfer:: Against Medical Advice Condition at Disposition:: Stable, Improved (RTER prn if existing s/s reoccur and/or get worse and/or any other new s/s occur; ACIs given for all above Dx; Refer to Traveling Electrician/G[employer] Rolling Machine Operator SANTOS; F/U with PMD Today or prn; RTER prn if concerned)
== END 2019-02-01 17:52 | disposition left against medical advice (07) ==
LOC: ER 17:11
DX: I10 Essential (primary) hypertension (principal); E11.9 Type 2 diabetes mellitus without complications; Z79.4 Long term (current) use of insulin; Z59.0 Homelessness

== ENCOUNTER 2019-02-02 21:35 | Inpatient (IN) | payer MEDICAID ==
--- NOTE | 2019-02-02 22:07 | ED Physician Chart ---
ED Chief Complaint/HPI - Patient Information Date Seen:: 02/02/19 Time Seen:: 22:04 Chief Complaint:: hypoglycemia History of Present Illness:: 28 yr old male juvenille diabetic who overdoses on insulin and comes with low blood sugars Allergies:: Allergies Allergy/AdvReac Type Severity Reaction Status Date / Time No Known Allergies Allergy Verified 02/02/19 21:53 Vitals:: Vital Signs - 8 hr 02/02/19 21:35 Temp 98.1 F HR 100 RR 20 BP 155/92 O2 Sat % 97 ED Review of Systems - Review of Systems General/Constitutional: No fever, No chills, No weight loss, No weakness, No diaphoresis, No edema, No loss of appetite Skin: No skin lesions, No rash, No bruising Head: No headache, No light-headedness Eyes: No loss of vision, No pain, No diplopia ENT: No earache, No nasal drainage, No sore throat, No tinnitus Neck: No neck pain, No swelling, No thyromegaly, No stiffness, No mass noted Cardio Vascular: No chest pain, No palpitations, No PND, No orthopnea, No edema Pulmonary: No SOB, No cough, No sputum, No wheezing GI: No nausea, No vomiting, No diarrhea, No pain, No melena, No hematochezia, No constipation, No hematemesis G/U: No dysuria, No frequency, No hematuria Musculoskeletal: No bone or joint pain, No back pain, No muscle pain Endocrine: No polyuria, No polydipsia Psychiatric: No prior psych history, No depression, No anxiety, No suicidal ideation Hematopoietic: No bruising, No lymphadenopathy Allergic/Immuno: No urticaria, No angioedema Neurological: No syncope, No focal symptoms, No weakness, No paresthesia, No headache, No seizure, No dizziness, No confusion, No vertigo ED Past Medical History - Past Medical History Past Medical History: DM Family Medical History - Family Member Mother History Unknown: Yes Ethnicity: Non- Living Status: Still Living Hx Family Cancer: No Hx Family Coronary Artery Disease: No Hx Family Congestive Heart Failure: No Hx Family Hypertension: No Hx Family Stroke: No Hx Family Diabetes: No Hx Family Seizures: No Hx Family Dementia: No Hx Family AIDS: No Hx Family HIV: No Hx Family COPD: No Hx Family Hepatitis: No Hx Family Psychiatric Problems: No Hx Family Tuberculosis: No ED Physical Exam - Physical Examination General/Constitutional: Awake, Well-developed, well-nourished, Alert, No distress, GCS 15, Non-toxic appearing, Ambulatory Head: Atraumatic Eyes: Lids, conjuctiva normal, PERRL, EOMI Skin: Nl inspection, No rash, No skin lesions, No ecchymosis, Well hydrated, No lymphadenopathy ENMT: External ears, nose nl, Nasal exam nl, Lips, teeth, gums nl Neck: Nontender, Full ROM w/o pain, No JVD, No nuchal rigidity, No bruit, No mass, No stridor Respiratory: Nl effort/Exclusion, Clear to Auscultation, No Wheeze/Rhonchi/Rales Cardio Vascular: RRR, No murmur, gallop, rubs, NL S1 S2 GI: No tenderness/rebounding/guarding, No organomegaly, No hernia, Normal BS's, Nondistended, No mass/bruits, No McBurney tenderness : No CVA tenderness Extremities: No tenderness or effusion, Full ROM, normal strength in all extremities, No edema, Normal digits & nails Neuro/Psych: Alert/oriented, DTR's symmetric, Normal sensory exam, Normal motor strength, Judgement/insight normal, Mood normal, Normal gait, No focal deficits Misc: Normal back, No paraspinal tenderness ED Assessment - Assessment General Assessment: hypoglycemia ED Septic Shock - . Is Septic Shock (SBP<90, OR Lactate>4 mmol\L) present?: No - <6hrs of presentation: Vital Signs: Vital Signs - 8 hr 02/02/19 21:35 Temp 98.1 F HR 100 RR 20 BP 155/92 O2 Sat % 97 ED Reassessment (Disposition) - Reassessment Reassessment:: hypoglycemia - Diagnosis Diagnosis:: hypoglycemia - Patient Disposition Discharge/Transfer:: Home Condition at Disposition:: Critical
[2019-02-02 22:22] LABS: % BASOPHILS 1.4 % (0.0-2.0); % EOSINOPHILS 5.7 % (0.0-5.0); % LYMPHOCYTES 37.5 % (20.0-50.0); % MONOCYTES 6.6 % (2.0-10.0); % NEUTROPHILS 48.8 % (40.0-80.0); BASOPHILE ABSOLUTE 0.1 Th/cumm (0-0.2); EOSINOPHILE ABSOLUTE 0.4 Th/cmm (0.1-0.4); HEMATOCRIT 38.1 % (41.0-60); HEMOGLOBIN 12.8 gm/dL (12-16); LYMPHOCYTE ABSOLUTE 2.8 Th/cmm (1.5-3.0); MEAN CELL VOLUME 91.9 fl (80-99); MEAN CORPUSCULAR HEMOGLOBIN 30.9 pg (26.0-30.0); MEAN CORPUSCULAR HGB CONC 33.6 pg (28.0-36.0); MONOCYTE ABSOLUTE 0.5 Th/cmm (0.3-1.0); NEUTROPHILE ABSOLUTE 3.6 Th/cmm (1.8-8.0); PLATELET COUNT 431 Th/cmm (150-400); RED BLOOD COUNT 4.14 Mil/cmm (4.30-5.70); RED CELL DISTRIBUTION WIDTH 14.2 % (11.5-20.0); WHITE BLOOD COUNT 7.4 Th/cmm (4.8-10.8)
[2019-02-02 22:46] LABS: ALB/GLOB RATIO 1.5 (1.0-1.8); ALBUMIN 4.1 gm/dL (4.2-5.5); ALKALINE PHOSPHATASE 65 U/L (34-104); ANION GAP 15.7 (7.0-16.0); BILIRUBIN,TOTAL 0.4 mg/dL (0.3-1.0); BUN - UREA NITROGEN 23 mg/dL (7-25); CALCIUM SERUM 9.4 mg/dL (8.6-10.3); CARBON DIOXIDE 24.5 mEq/L (21.0-31.0); CHLORIDE 106 mEq/L (98-107); CREATININE - SERUM 0.9 mg/dL (0.7-1.3); GFR AFRICAN-AMERICAN > 60.0 ml/min (>90); GFR NON AFRICAN-AMERICAN > 60.0 ml/min; GLUCOSE 74 mg/dL (70-105); POTASSIUM SERUM 3.2 mEq/L (3.5-5.1); SGOT 27 U/L (13-39); SGPT/ALT 25 U/L (7-52); SODIUM SERUM 143 mEq/L (136-145); TOTAL PROTEIN,SERUM 6.8 gm/dL (6.0-8.3)
[2019-02-03] MEDS ORDERED: Dextrose 50% 50 mL Abboject IVP PRN (01:49)
[2019-02-03] MEDS ORDERED: GLUCAGON HCl 1 MG KIT IM PRN (01:49)
[2019-02-03] MEDS ORDERED: D5-0.45NS w/20 mEq KCL 1,000 ML IV SCH (02:05)
[2019-02-03 06:21] LABS: URINE SOURCE CLEAN C
[2019-02-03 06:23] LABS: URINE BILIRUBIN NEGATIVE (NEGATIVE); URINE BLOOD NEGATIVE (NEGATIVE); URINE GLUCOSE (UA) NEGATIVE (NEGATIVE); URINE KETONE NEGATIVE (NEGATIVE); URINE LEUKOCYTE ESTERASE NEGATIVE (NEGATIVE); URINE NITRATE NEGATIVE (NEGATIVE); URINE PROTEIN NEGATIVE (NEGATIVE); URINE UROBILINOGEN 0.2 E.U./dL (0.2 - 1.0)
[2019-02-03 06:27] LABS: URINE CLARITY CLEAR (CLEAR); URINE COLOR YELLOW; URINE MICROSCOPIC INDICATED? YES
[2019-02-03 06:31] LABS: URINE RBC NONE SEEN /hpf (0-5)
[2019-02-03 06:32] LABS: URINE BACTERIA NONE SEEN /hpf (NONE SEEN); URINE EPITHELIAL CELLS RARE /lpf (FEW); URINE WBC 0-2 /hpf (0-5)
[2019-02-03] MEDS: INSULIN LISPRO SLIDING SCALE 100 UNITS/ML UNIT SUBQ SCH ×4 (06:33→20:03)
--- NOTE | 2019-02-03 17:41 | History & Physical ---
ADMIT DATE: 02/03/2019 CHIEF COMPLAINT: Hypoglycemia. HISTORY OF PRESENT ILLNESS: The patient is a 28-year-old male with long history of insulin-dependent diabetes mellitus, homeless, presented to the Emergency Room with hypoglycemia, evaluated by the ER physician, admitted to the hospital, started on IV fluid. The patient refused IV fluid. We will start him on diabetic diet, sliding scale with regular insulin coverage. The patient denies any chest pain, shortness of breath, nausea, vomiting. PAST MEDICAL HISTORY: Significant for diabetes mellitus. PAST SURGICAL HISTORY: No recent surgery. ALLERGIES: None. MEDICATIONS: Follow admission reconciliation. SOCIAL HISTORY: No smoking, no alcohol, no drug. FAMILY HISTORY: Noncontributory. REVIEW OF SYSTEMS: RENAL SYSTEM: No history of chronic renal disorder. CARDIOVASCULAR SYSTEM: No coronary artery disease. ENDOCRINE SYSTEM: He has history of insulin dependent diabetes mellitus. GASTROINTESTINAL SYSTEM: No upper or lower gastrointestinal bleed. NEUROLOGICAL SYSTEM: No seizure disorder. SKELETOMUSCULAR SYSTEM: No muscular dystrophy. HEMATOLOGIC SYSTEM: No bleeding tendencies. RESPIRATORY SYSTEM: No asthma. GENITOURINARY: No dysuria or hematuria.. PHYSICAL EXAMINATION: GENERAL: He is awake, alert, oriented, not in pain or distress. VITAL SIGNS: Temperature 97.5, heart rate 86, blood pressure 132/78. HEENT: Normocephalic. Pupils are reactive to light and accommodation. Sclerae is clear. NECK: Supple. Negative for lymphadenopathy, JVD or bruit. CHEST: Entry of air bilaterally normal. No rhonchi or wheezing. HEART: S1, S2 normal. No gallop rhythm. ABDOMEN: Soft, bowel sounds positive. EXTREMITIES: No edema. NEUROLOGIC: He is awake, alert, oriented. No focal muscle deficits. Cranial nerves 2-12 intact. LABORATORY DATA: White blood 7.4, hemoglobin 12.8, hematocrit 38.1, platelet is 431. Sodium is 143, potassium 3.2, BUN 23, creatinine 0.9. ASSESSMENT: 1. Hypoglycemic reaction. 2. History of insulin-dependent diabetes mellitus. PLAN: The patient admitted to the hospital under Dr. Mireles's service. Start him on D5 half normal saline with 20 mEq at 75 mL per hour. Diabetic diet, sliding scale with regular insulin coverage. The patient will resume his home medication. The patient is a full code. [facility]# [id number]
[2019-02-04] MEDS: INSULIN LISPRO SLIDING SCALE 100 UNITS/ML UNIT SUBQ SCH ×4 (07:51→20:00)
--- NOTE | 2019-02-04 15:02 | Internal Medicine Prog Note ---
Internal Medicine Subjective - Subjective Service Date: 02/04/19 Patient seen and examined:: with staff Patient is:: awake, verbal, in bed, talking Per staff patient has:: no adverse event Internal Medicine Objective - Results Result Diagrams: 02/02/19 22:15 02/02/19 22:15 Recent Labs: Laboratory Last Values WBC 7.4 Th/cmm (4.8-10.8) 02/02/19 22:15 RBC 4.14 Mil/cmm (4.30-5.70) L 02/02/19 22:15 Hgb 12.8 gm/dL (12-16) 02/02/19 22:15 Hct 38.1 % (41.0-60) L 02/02/19 22:15 MCV 91.9 fl (80-99) 02/02/19 22:15 MCH 30.9 pg (26.0-30.0) H 02/02/19 22:15 MCHC Differential 33.6 pg (28.0-36.0) 02/02/19 22:15 RDW 14.2 % (11.5-20.0) 02/02/19 22:15 Plt Count 431 Th/cmm (150-400) H 02/02/19 22:15 MPV 7.8 fl 02/02/19 22:15 Neutrophils % 48.8 % (40.0-80.0) 02/02/19 22:15 Lymphocytes % 37.5 % (20.0-50.0) 02/02/19 22:15 Monocytes % 6.6 % (2.0-10.0) 02/02/19 22:15 Eosinophils % 5.7 % (0.0-5.0) H 02/02/19 22:15 Basophils % 1.4 % (0.0-2.0) 02/02/19 22:15 Sodium 143 mEq/L (136-145) 02/02/19 22:15 Potassium 3.2 mEq/L (3.5-5.1) L 02/02/19 22:15 Chloride 106 mEq/L (98-107) 02/02/19 22:15 Carbon Dioxide 24.5 mEq/L (21.0-31.0) 02/02/19 22:15 Anion Gap 15.7 (7.0-16.0) 02/02/19 22:15 BUN 23 mg/dL (7-25) 02/02/19 22:15 Creatinine 0.9 mg/dL (0.7-1.3) 02/02/19 22:15 Est GFR ( Amer) > 60.0 ml/min (>90) 02/02/19 22:15 Est GFR (Non-Af Amer) > 60.0 ml/min 02/02/19 22:15 BUN/Creatinine Ratio 25.6 02/02/19 22:15 Glucose 74 mg/dL (70-105) 02/02/19 22:15 POC Glucose 236 MG/DL (70 - 105) H 02/04/19 11:41 Calcium 9.4 mg/dL (8.6-10.3) 02/02/19 22:15 Total Bilirubin 0.4 mg/dL (0.3-1.0) 02/02/19 22:15 AST 27 U/L (13-39) 02/02/19 22:15 ALT 25 U/L (7-52) 02/02/19 22:15 Alkaline Phosphatase 65 U/L (34-104) 02/02/19 22:15 Total Protein 6.8 gm/dL (6.0-8.3) 02/02/19 22:15 Albumin 4.1 gm/dL (4.2-5.5) L 02/02/19 22:15 Globulin 2.7 gm/dL 02/02/19 22:15 Albumin/Globulin Ratio 1.5 (1.0-1.8) 02/02/19 22:15 Urine Source CLEAN C 02/03/19 06:00 Urine Color YELLOW 02/03/19 06:00 Urine Clarity CLEAR (CLEAR) 02/03/19 06:00 Urine pH 7.0 (4.6 - 8.0) 02/03/19 06:00 Ur Specific [place] 1.010 (1.005-1.030) 02/03/19 06:00 Urine Protein NEGATIVE mg/dL (NEGATIVE) 02/03/19 06:00 Urine Glucose (UA) NEGATIVE mg/dL (NEGATIVE) 02/03/19 06:00 Urine Ketones NEGATIVE mg/dL (NEGATIVE) 02/03/19 06:00 Urine Blood NEGATIVE (NEGATIVE) 02/03/19 06:00 Urine Nitrate NEGATIVE (NEGATIVE) 02/03/19 06:00 Urine Bilirubin NEGATIVE (NEGATIVE) 02/03/19 06:00 Urine Urobilinogen 0.2 E.U./dL (0.2 - 1.0) 02/03/19 06:00 Ur Leukocyte Esterase NEGATIVE (NEGATIVE) 02/03/19 06:00 Urine RBC NONE SEEN /hpf (0-5) 02/03/19 06:00 Urine WBC 0-2 /hpf (0-5) 02/03/19 06:00 Ur Epithelial Cells RARE /lpf (FEW) 02/03/19 06:00 Urine Bacteria NONE SEEN /hpf (NONE SEEN) 02/03/19 06:00 - Physical Exam Vitals and I&O: Vital Signs Temp 97.8 F 02/04/19 04:00 Pulse 86 02/04/19 04:00 Resp 20 02/04/19 04:00 BP 137/85 02/04/19 04:00 Pulse Ox 99 02/04/19 04:00 Intake & Output 02/03/19 02/04/19 02/04/19 18:59 06:59 18:59 Intake Total 480 Balance 480 Weight (lbs) 87.543 kg Intake: Oral 480 Other: # Voids 2 Weight Source Bedscale Active Medications: Current Medications Dextrose (D50w) 50 ml IVP PRN PRN PRN Reason: Blood Glucose less than 70 Stop: 04/04/19 01:48 Dextrose (Glutose 40%) 18.75 gm PO PRN PRN PRN Reason: Blood Glucose less than 70 Stop: 04/04/19 01:48 Gabapentin (Neurontin) 300 mg PO TID [facility] Stop: 04/04/19 20:59 Last Admin: 02/04/19 07:53 Dose: 300 mg Glucagon (Glucagen) 1 mg IM PRN PRN PRN Reason: Blood Glucose less than 70 Stop: 04/04/19 01:48 Potassium Chloride/Dextrose/Sod Cl (D5-0.45ns W/20 Meq Kcl) 1,000 mls @ 75 mls/ hr IV .[id number] [facility] Stop: 04/04/19 02:04 Last Admin: 02/03/19 05:45 Dose: Not Given Insulin Human Lispro (Humalog Insulin Sliding Scale) 0 units SUBQ ACHS [facility]; Protocol Stop: 04/04/19 07:29 Last Admin: 02/04/19 11:50 Dose: 4 units General: alert HEENT: NC/AT, PERRLA, EOMI, anicteric sclerae, throat clear Neck: Supple, No JVD, No thyromegaly, +2 carotid pulse wo bruit, No LAD Lungs: CTAB Cardiovascular: RRR, Normal S1, Normal S2, without murmur Abdomen: soft, non-tender, non-distended Extremities: clear Neurological: no change - Procedures Procedures: Procedures Procedure Code Date INJECT/INFUSE NEC 99.29 12/09/12 Internal Medicine Assmt/Plan - Assessment Assessment: 1.DEPRESSION. 2.DM - Plan Plan: 1.CONSULT Nutritional Asmnt/Malnutr-PDOC - Dietary Evaluation Malnutrition Findings (Please click <Entered> for more info): Nutritional Asmnt/Malnutrition Start: 02/03/19 12: 28 Text: Status: Complete Freq: Protocol: Document 02/03/19 12:28 RODRICK (Rec: 02/03/19 12:32 RODRICK [id number]) Nutritional Asmnt/Malnutrition Patient General Information Nutritional Screening High Risk Diagnosis Hypoglycemia Pertinent Medical Hx/Surgical Hx Juvenile DM Subjective Information Pt is a 28-year-old male admitted on 02/03 c/o hypoglycemia. Pt ate 100% at breakfast and asked for more food after, Pt has been here before and eats well, typically asks for more food. HT: 58 WT: 193 LB (87.72 kg) ADJ BW: 76.1 kg BMI: 29.34 (Overweight) GI: WNL, Soft, Non-Tender BM: Not noted I/O: 1200/Not Noted Skin: WNL, Warm, Dry, Tight, Scar on back of neck Davidson: 20 Diet Order: [facility] Estimated Energy Needs: ( Overweight, ADJ BW) 8689-6264 kcals (20-25 kcals/ kg) 61-69 g Pro (0.8-0.9 g/kg) 7481-6705 ml (25-30 ml/kg) Current Diet Order/ Nutrition Support [facility] Pertinent Medications D50w (PRN), Glutose 40%v (PRN) , Glucagen, INS-SS, D5-0.45ns w/20 Meq Kcl 1000mls @75mls/hr IV [id number] Pertinent Labs 7/31: Hgb/Hct 12.8/38.1, POC glucose (last 24 hours) 78, 57 , 72, 76, 65, 106 Nutritional Hx/Data Height 1.73 m Height (Calculated Centimeters) 172.7 Current Weight (lbs) 87.543 kg Weight (Calculated Kilograms) 87.5 Weight (Calculated Grams) 20129.3 [place] Body Weight 68.4 kg % [place] Body Weight 128 Body Mass Index (BMI) 29.3 Weight Status Overweight GI Symptoms GI Symptoms None Last BM Not noted Skin Integrity/Comment: WNL, Warm, Dry, Tight, Scar on back of neck Current %PO Good (75-100%) Estimated Nutritional Goals BEE in Kcals: Adj wt of IBW Calories/Kcals/Kg 20-25 Kcals Calculated 0494-6924 Protein: Adj wt of IBW Protein g/k.8-0.9 Protein Calculated 61-69 Fluid: ml 5867-5263 ml (25-30 ml/kg) Nutritional Problem 1. Problem Problem Altered nutrition related labs Etiology endocrine dysfunction Signs/Symptoms: lab result POC glucose (last 24 hours) 78, 57, 72, 76, 65, 106 Malnutrition Related to Morbid Obesity Malnutrition related to morbid obesity No Intervention/Recommendation Comments 3.Continue with [facility] diet as ordered. 4.Continue with anti- hyperglycemic meds per MD order. Expected Outcomes/Goals Expected Outcomes/Goals 1.PO intake to meet 75% of nutritional needs. 2.Monitor PO intake, wt, skin integrity, and nutrition related labs to trend WNL. 3.F/U as moderate risk in 3-5 days, 02/06-02/08
[2019-02-05] MEDS: INSULIN LISPRO SLIDING SCALE 100 UNITS/ML UNIT SUBQ SCH ×2 (08:03→11:47)
--- NOTE | 2019-02-05 15:47 | Psychiatric Evaluation ---
DATE OF SERVICE: 02/04/2019 AGE: 28 SEX: Male. PHYSICIAN: Dr. Mireles. WINDOW MAKER: Dr. Mitchell. REASON FOR THE CONSULT: Hypoglycemia. HISTORY OF PRESENT ILLNESS: The patient with history of depression. The patient was admitted to the hospital because of hypoglycemia. The patient has been abusing methamphetamine and has not been eating well and he is having hypoglycemia. The patient also has been homeless and has been disheveled and personal hygiene has been poor. The patient upon admission was talking about his desire to kill himself and at that time was under the influence of methamphetamine. The patient currently denies any intention to harm himself or others. Also denies any hallucinations or delusions. PAST PSYCHIATRIC HISTORY: Multiple psychiatric hospitalizations in [facility] as well as in [facility]. PAST MEDICAL HISTORY: Hypoglycemia. SOCIAL HISTORY: The patient is homeless. The patient abuses methamphetamine and cannabis. No other drug use. MENTAL STATUS EXAM: The patient appears slightly older than his stated age. Cooperative. Sad affect. Mood not depressed nor elated. The patient denies any hallucinations or delusions and he denies any thoughts of suicide or homicide. The patient is alert and oriented to time, place, person, and situation. Intact immediate, recent and remote memories. Insight, judgment at this time. ASSESSMENT: PRIMARY DIAGNOSIS: Depressive mood disorder, unspecified. TREATMENT PLAN: 1. The patient currently not suicidal or homicidal. The patient can be discharged with plans for outpatient [facility] as well as drug rehab program. EXPECTED OUTCOME AFTER DISCHARGE: Fair, if the patient continues to take his medications and if he goes to rehab program and stopped using drugs. [facility]# [id number]
== END 2019-02-05 15:00 | disposition home or self-care (01) | DRG 812 ==
LOC: ER 21:35 → MSI 02-03 01:00
PROVIDERS: ADMIT Family Medicine; ATTEND Family Medicine
DX: T38.3X1A Poisoning by insulin and oral hypoglycemic [antidiabetic] drugs, accidental (unintentional), initial encounter (principal); E10.649 Type 1 diabetes mellitus with hypoglycemia without coma; F12.10 Cannabis abuse, uncomplicated; F32.9 Major depressive disorder, single episode, unspecified; Z59.0 Homelessness; Y92.89 Other specified places as the place of occurrence of the external cause; Z79.4 Long term (current) use of insulin
CPT/HCPCS: 36415-UA; 80053-TC; 81001-TC; 82948-90; 85025-TC; 90784

== ENCOUNTER 2019-02-08 20:38 | Emergency (ER) | payer MEDICAID ==
--- NOTE | 2019-02-08 21:33 | ED Physician Chart ---
ED Chief Complaint/HPI - Patient Information Date Seen:: 02/08/19 Time Seen:: 21:31 Chief Complaint:: Right ear abscess History of Present Illness:: 28 yo homeless male with history of DM II, schizophrenia, depression, psychosis and amphetamine use, presented to ER for a large right ear abscess for 1 week. Pt stated that he had infection/abscess on both ears on and off for about a year. Pt had uncontrolled DM II with multiple episodes of hypoglycemia and was hospitalized recently. Allergies:: Allergies Allergy/AdvReac Type Severity Reaction Status Date / Time No Known Allergies Allergy Verified 02/02/19 21:53 Vitals:: Vital Signs - 8 hr 02/08/19 20:43 Temp 98.7 F HR 101 RR 20 BP 147/83 O2 Sat % 97 ED Review of Systems - Review of Systems General/Constitutional: No fever Skin: Skin lesions Head: No headache Eyes: No pain ENT: No nasal drainage Neck: No neck pain Cardio Vascular: No chest pain Pulmonary: No SOB GI: Nausea, Vomiting Musculoskeletal: Bone or joint pain Psychiatric: Prior psych history Neurological: No focal symptoms ED Past Medical History - Past Medical History Past Medical History: DM, Other (Fungal infections) Social History: Smoker, Alcohol, Illicit Drug Use Psychiatricy History: Depression, Schizophrenia, Other (Psychosis) Family Medical History - Family Member Mother History Unknown: Yes Ethnicity: Non- Living Status: Still Living Hx Family Cancer: No Hx Family Coronary Artery Disease: No Hx Family Congestive Heart Failure: No Hx Family Hypertension: No Hx Family Stroke: No Hx Family Diabetes: No Hx Family Seizures: No Hx Family Dementia: No Hx Family AIDS: No Hx Family HIV: No Hx Family COPD: No Hx Family Hepatitis: No Hx Family Psychiatric Problems: No Hx Family Tuberculosis: No ED Physical Exam - Physical Examination General/Constitutional: Awake, Alert Head: Atraumatic Eyes: PERRL, EOMI Other ENMT comments:: Large abscess on the helix of the right ear, 3 cm in size, firm, tender with drainage Neck: No nuchal rigidity Respiratory: Clear to Auscultation Cardio Vascular: RRR, No murmur, gallop, rubs, NL S1 S2 GI: No tenderness/rebounding/guarding Extremities: normal strength in all extremities Neuro/Psych: No focal deficits ED Labs/Radiology/EKG Results - Lab Results Results: Laboratory Last Values WBC 7.8 Th/cmm (4.8-10.8) 02/08/19 21:40 RBC 3.76 Mil/cmm (4.30-5.70) L 02/08/19 21:40 Hgb 11.9 gm/dL (12-16) L 02/08/19 21:40 Hct 34.6 % (41.0-60) L 02/08/19 21:40 MCV 92.2 fl (80-99) 02/08/19 21:40 MCH 31.8 pg (26.0-30.0) H 02/08/19 21:40 MCHC Differential 34.5 pg (28.0-36.0) 02/08/19 21:40 RDW 13.8 % (11.5-20.0) 02/08/19 21:40 Plt Count 423 Th/cmm (150-400) H 02/08/19 21:40 MPV 8.3 fl 02/08/19 21:40 Neutrophils % 62.0 % (40.0-80.0) 02/08/19 21:40 Lymphocytes % 23.9 % (20.0-50.0) 02/08/19 21:40 Monocytes % 11.2 % (2.0-10.0) H 02/08/19 21:40 Eosinophils % 2.1 % (0.0-5.0) 02/08/19 21:40 Basophils % 0.8 % (0.0-2.0) 02/08/19 21:40 PT 9.3 SECONDS (9.5-11.5) L 02/08/19 21:40 INR 0.88 (0.5-1.4) 02/08/19 21:40 PTT (Actin FS) 29.4 SECONDS (26.0-38.0) 02/08/19 21:40 Sodium 119 mEq/L (136-145) L* 02/08/19 21:40 Potassium 4.6 mEq/L (3.5-5.1) 02/08/19 21:40 Chloride 83 mEq/L (98-107) L 02/08/19 21:40 Carbon Dioxide 23.5 mEq/L (21.0-31.0) 02/08/19 21:40 Anion Gap 17.1 (7.0-16.0) H 02/08/19 21:40 BUN 22 mg/dL (7-25) 02/08/19 21:40 Creatinine 1.2 mg/dL (0.7-1.3) 02/08/19 21:40 Est GFR ( Amer) > 60.0 ml/min (>90) 02/08/19 21:40 Est GFR (Non-Af Amer) > 60.0 ml/min 02/08/19 21:40 BUN/Creatinine Ratio 18.3 02/08/19 21:40 Glucose 1097 mg/dL (70-105) H* 02/08/19 21:40 Calcium 9.3 mg/dL (8.6-10.3) 02/08/19 21:40 Total Bilirubin 1.8 mg/dL (0.3-1.0) H 02/08/19 21:40 AST 20 U/L (13-39) 02/08/19 21:40 ALT 20 U/L (7-52) 02/08/19 21:40 Alkaline Phosphatase 86 U/L (34-104) 02/08/19 21:40 Total Protein 7.1 gm/dL (6.0-8.3) 02/08/19 21:40 Albumin 4.2 gm/dL (4.2-5.5) 02/08/19 21:40 Globulin 2.9 gm/dL 02/08/19 21:40 Albumin/Globulin Ratio 1.5 (1.0-1.8) 02/08/19 21:40 Urine Source MIDSTREAM 02/09/19 00:10 Urine Color YELLOW 02/09/19 00:10 Urine Clarity CLEAR (CLEAR) 02/09/19 00:10 Urine pH 6.0 (4.6 - 8.0) 02/09/19 00:10 Ur Specific [place] >= 1.030 (1.005-1.030) 02/09/19 00:10 Urine Protein TRACE mg/dL (NEGATIVE) 02/09/19 00:10 Urine Glucose (UA) NEGATIVE mg/dL (NEGATIVE) 02/09/19 00:10 Urine Ketones NEGATIVE mg/dL (NEGATIVE) 02/09/19 00:10 Urine Blood SMALL (NEGATIVE) H 02/09/19 00:10 Urine Nitrate NEGATIVE (NEGATIVE) 02/09/19 00:10 Urine Bilirubin SMALL (NEGATIVE) H 02/09/19 00:10 Urine Urobilinogen 0.2 E.U./dL (0.2 - 1.0) 02/09/19 00:10 Ur Leukocyte Esterase NEGATIVE (NEGATIVE) 02/09/19 00:10 Urine Opiates Screen NEGATIVE (NEGATIVE) 02/09/19 00:10 Urine Methadone Screen NEGATIVE (NEGATIVE) 02/09/19 00:10 Ur Barbiturates Screen NEGATIVE (NEGATIVE) 02/09/19 00:10 Ur Tricyclics Screen NEGATIVE (NEGATIVE) 02/09/19 00:10 Ur Phencyclidine Scrn NEGATIVE (NEGATIVE) 02/09/19 00:10 Amphetamines Screen NEGATIVE (NEGATIVE) 02/09/19 00:10 U Methamphetamines Scrn NEGATIVE (NEGATIVE) 02/09/19 00:10 U Benzodiazepines Scrn NEGATIVE (NEGATIVE) 02/09/19 00:10 U Cocaine Metab Screen NEGATIVE (NEGATIVE) 02/09/19 00:10 U Cannabinoids Screen NEGATIVE (NEGATIVE) 02/09/19 00:10 ED Assessment - Assessment General Assessment: DM II with hyperglycemia Hyponatremia Right ear abscess Schizophrenia Anemia, normocytic Assessment/Comments:: CBC, CMP, PT/PTT, UA, urine drug screen NS 2 L IV bolus Vancomycin 1 g IV Regular insulin 17 units SC ED Septic Shock - . Is Septic Shock (SBP<90, OR Lactate>4 mmol\L) present?: No - <6hrs of presentation: Vital Signs: Vital Signs - 8 hr 02/08/19 20:43 Temp 98.7 F HR 101 RR 20 BP 147/83 O2 Sat % 97 ED Reassessment (Disposition) - Reassessment Reassessment:: Pt had severe hyperglycemia and hyponatremia. Pt took shower at ER, drank water , felt better after treatment. I recommended pt to be admitted for further management of hyperglycemia and hyponatremia. However, pt refused and left AMA. Reassessment Condition:: Improved - Patient Disposition Discharge/Transfer:: Against Medical Advice
[2019-02-08 21:45] LABS: % BASOPHILS 0.8 % (0.0-2.0); % EOSINOPHILS 2.1 % (0.0-5.0); % LYMPHOCYTES 23.9 % (20.0-50.0); % MONOCYTES 11.2 % (2.0-10.0); BASOPHILE ABSOLUTE 0.1 Th/cumm (0-0.2); EOSINOPHILE ABSOLUTE 0.2 Th/cmm (0.1-0.4); HEMATOCRIT 34.6 % (41.0-60); HEMOGLOBIN 11.9 gm/dL (12-16); LYMPHOCYTE ABSOLUTE 1.9 Th/cmm (1.5-3.0); MEAN CELL VOLUME 92.2 fl (80-99); MEAN CORPUSCULAR HEMOGLOBIN 31.8 pg (26.0-30.0); MEAN CORPUSCULAR HGB CONC 34.5 pg (28.0-36.0); MONOCYTE ABSOLUTE 0.9 Th/cmm (0.3-1.0); NEUTROPHILE ABSOLUTE 4.7 Th/cmm (1.8-8.0); PLATELET COUNT 423 Th/cmm (150-400); RED BLOOD COUNT 3.76 Mil/cmm (4.30-5.70); RED CELL DISTRIBUTION WIDTH 13.8 % (11.5-20.0); WHITE BLOOD COUNT 7.8 Th/cmm (4.8-10.8)
[2019-02-08 22:01] LABS: INR 0.88 (0.5-1.4)
[2019-02-08 22:06] LABS: ALB/GLOB RATIO 1.5 (1.0-1.8); ALBUMIN 4.2 gm/dL (4.2-5.5); ALKALINE PHOSPHATASE 86 U/L (34-104); ANION GAP 17.1 (7.0-16.0); BILIRUBIN,TOTAL 1.8 mg/dL (0.3-1.0); BUN - UREA NITROGEN 22 mg/dL (7-25); CALCIUM SERUM 9.3 mg/dL (8.6-10.3); CARBON DIOXIDE 23.5 mEq/L (21.0-31.0); CHLORIDE 83 mEq/L (98-107); CREATININE - SERUM 1.2 mg/dL (0.7-1.3); GFR AFRICAN-AMERICAN > 60.0 ml/min (>90); GFR NON AFRICAN-AMERICAN > 60.0 ml/min; POTASSIUM SERUM 4.6 mEq/L (3.5-5.1); SGOT 20 U/L (13-39); SGPT/ALT 20 U/L (7-52); TOTAL PROTEIN,SERUM 7.1 gm/dL (6.0-8.3)
[2019-02-08 22:19] LABS: GLUCOSE 1097 mg/dL (70-105); SODIUM SERUM 119 mEq/L (136-145)
[2019-02-08] MEDS ORDERED: Sodium Chloride 0.9% 1,000 ML IV ONE (22:29)
[2019-02-08] MEDS ORDERED: INSULIN HUMAN REGULAR 100 UNIT/ML VIAL SUBQ ONE (22:32)
[2019-02-09] MEDS ORDERED: Sodium Chloride 0.9% 1,000 ML IV ONE (00:13)
[2019-02-09 00:18] LABS: URINE SOURCE MIDSTREAM
[2019-02-09 00:22] LABS: URINE KETONE NEGATIVE (NEGATIVE); URINE LEUKOCYTE ESTERASE NEGATIVE (NEGATIVE); URINE MICROSCOPIC INDICATED? YES; URINE NITRATE NEGATIVE (NEGATIVE); URINE UROBILINOGEN 0.2 E.U./dL (0.2 - 1.0)
[2019-02-09 00:29] LABS: URINE CLARITY CLEAR (CLEAR); URINE COLOR YELLOW
[2019-02-09 00:35] LABS: AMPHETAMINE URINE NEGATIVE (NEGATIVE); BARBITURATES URINE NEGATIVE (NEGATIVE); BENZODIAZEPINES QUAL URINE NEGATIVE (NEGATIVE); CANNABINOID THC NEGATIVE (NEGATIVE); COCAINE METABOLITE QUAL URINE NEGATIVE (NEGATIVE); METHADONE URINE NEGATIVE (NEGATIVE); METHAMPHETAMINES QUAL URINE NEGATIVE (NEGATIVE); OPIATES (MORPHINE) QUAL. URINE NEGATIVE (NEGATIVE); PHENCYCLIDINE (PCP) URINE NEGATIVE (NEGATIVE); TRICYCLICS (TCA) QUAL. URINE NEGATIVE (NEGATIVE)
[2019-02-09 07:12] LABS: A1C 10.1 % (4.8-5.6)
[2019-02-09 10:21] LABS: URINE BILIRUBIN NEGATIVE (NEGATIVE); URINE GLUCOSE (UA) >=1000 mg/dL (NEGATIVE)
[2019-02-09 10:23] LABS: URINE BLOOD NEGATIVE (NEGATIVE)
[2019-02-09 10:25] LABS: URINE PH 5.5 (4.6 - 8.0); URINE PROTEIN NEGATIVE (NEGATIVE)
[2019-02-09 10:26] LABS: URINE BACTERIA FEW /hpf (NONE SEEN); URINE EPITHELIAL CELLS NONE SEEN /lpf (FEW); URINE RBC 0-2 /hpf (0-5); URINE WBC 0-2 /hpf (0-5)
== END 2019-02-09 01:20 | disposition left against medical advice (07) ==
LOC: ER 20:38
DX: E11.65 Type 2 diabetes mellitus with hyperglycemia (principal); H60.01 Abscess of right external ear; E87.1 Hypo-osmolality and hyponatremia; F20.9 Schizophrenia, unspecified; D64.9 Anemia, unspecified; F32.9 Major depressive disorder, single episode, unspecified; F17.200 Nicotine dependence, unspecified, uncomplicated
CPT/HCPCS: 99283; 96365; 96372; 36415; 36416 ×2; 80307; 85025; 85610; 81001; 83036; 80053; J3370; J7030; Z7502

== ENCOUNTER 2019-02-19 04:24 | Emergency (ER) | payer MEDICAID ==
--- NOTE | 2019-02-19 04:36 | ED Physician Chart ---
ED Chief Complaint/HPI - Patient Information Date Seen:: 02/19/19 Time Seen:: 04:31 Chief Complaint:: hyperglycemia History of Present Illness:: 28 yr old male with IDDM HERE TO CHECK ON HIS BLOOD SUGAR NO NV DIAHREA NO CP OR ABD PAIN Allergies:: Allergies Allergy/AdvReac Type Severity Reaction Status Date / Time No Known Allergies Allergy Verified 02/02/19 21:53 ED Review of Systems - Review of Systems General/Constitutional: No fever, No chills, No weight loss, No weakness, No diaphoresis, No edema, No loss of appetite Skin: Skin lesions Head: No headache, No light-headedness Eyes: No loss of vision, No pain, No diplopia ENT: No earache, No nasal drainage, No sore throat, No tinnitus Neck: No neck pain, No swelling, No thyromegaly, No stiffness, No mass noted Cardio Vascular: No chest pain, No palpitations, No PND, No orthopnea, No edema Pulmonary: No SOB, No cough, No sputum, No wheezing GI: No nausea, No vomiting, No diarrhea, No pain, No melena, No hematochezia, No constipation, No hematemesis G/U: No dysuria, No frequency, No hematuria Musculoskeletal: No bone or joint pain, No back pain, No muscle pain Endocrine: No polyuria, No polydipsia Psychiatric: No prior psych history, No depression, No anxiety, No suicidal ideation Hematopoietic: No bruising, No lymphadenopathy Allergic/Immuno: No urticaria, No angioedema Neurological: No syncope, No focal symptoms, No weakness, No paresthesia, No headache, No seizure, No dizziness, No confusion, No vertigo ED Past Medical History - Past Medical History Past Medical History: No significant medical hx Family Medical History - Family Member Mother History Unknown: Yes Ethnicity: Non- Living Status: Still Living Hx Family Cancer: No Hx Family Coronary Artery Disease: No Hx Family Congestive Heart Failure: No Hx Family Hypertension: No Hx Family Stroke: No Hx Family Diabetes: No Hx Family Seizures: No Hx Family Dementia: No Hx Family AIDS: No Hx Family HIV: No Hx Family COPD: No Hx Family Hepatitis: No Hx Family Psychiatric Problems: No Hx Family Tuberculosis: No ED Physical Exam - Physical Examination General/Constitutional: Awake, Well-developed, well-nourished, Alert, No distress, GCS 15, Non-toxic appearing, Ambulatory Head: Atraumatic Eyes: Lids, conjuctiva normal, PERRL, EOMI Skin: Nl inspection, No rash, No skin lesions, No ecchymosis, Well hydrated, No lymphadenopathy ENMT: External ears, nose nl, Nasal exam nl, Lips, teeth, gums nl Neck: Nontender, Full ROM w/o pain, No JVD, No nuchal rigidity, No bruit, No mass, No stridor Respiratory: Nl effort/Exclusion, Clear to Auscultation, No Wheeze/Rhonchi/Rales Cardio Vascular: RRR, No murmur, gallop, rubs, NL S1 S2 GI: No tenderness/rebounding/guarding, No organomegaly, No hernia, Normal BS's, Nondistended, No mass/bruits, No McBurney tenderness : No CVA tenderness Extremities: No tenderness or effusion, Full ROM, normal strength in all extremities, No edema, Normal digits & nails Neuro/Psych: Alert/oriented, DTR's symmetric, Normal sensory exam, Normal motor strength, Judgement/insight normal, Mood normal, Normal gait, No focal deficits Misc: Normal back, No paraspinal tenderness ED Assessment - Assessment General Assessment: IDDM HERE FOR BS CHECK ED Septic Shock - . Is Septic Shock (SBP<90, OR Lactate>4 mmol\L) present?: No ED Reassessment (Disposition) - Reassessment Reassessment:: IDDM - Diagnosis Diagnosis:: ABOVE SUGAR FS 140 - Patient Disposition Discharge/Transfer:: Home Condition at Disposition:: Stable
== END 2019-02-19 05:35 | disposition home or self-care (01) ==
LOC: ER 04:24
DX: E11.65 Type 2 diabetes mellitus with hyperglycemia (principal)
CPT/HCPCS: 82948-90

== ENCOUNTER 2019-02-23 22:44 | Emergency (ER) | payer MEDICAID ==
[2019-02-23] MEDS ORDERED: INSULIN HUMAN REGULAR 100 UNIT/ML VIAL SUBQ ONE ×2 (23:14→23:19)
--- NOTE | 2019-02-23 23:19 | ED Physician Chart ---
ED Chief Complaint/HPI - Patient Information Date Seen:: 02/23/19 Time Seen:: 23:15 Chief Complaint:: hyperglycemia History of Present Illness:: 28 yr old male with hx of iddm homeless with nv high sugar needs insulin refuses ivs some nv no fever Allergies:: Allergies Allergy/AdvReac Type Severity Reaction Status Date / Time No Known Allergies Allergy Verified 02/19/19 04:39 Vitals:: Vital Signs - 8 hr 02/23/19 22:50 Temp 98.1 F HR 111 RR 18 BP 146/74 O2 Sat % 97 ED Review of Systems - Review of Systems General/Constitutional: No fever Skin: No skin lesions Head: Headache Eyes: No loss of vision ENT: No earache Neck: No neck pain Cardio Vascular: No chest pain Pulmonary: No SOB GI: Nausea, Vomiting, No diarrhea G/U: No dysuria Musculoskeletal: No bone or joint pain Endocrine: No polyuria Psychiatric: Depression Hematopoietic: No bruising Allergic/Immuno: No urticaria Neurological: No focal symptoms ED Past Medical History - Past Medical History Past Medical History: Other (iddm) Family Medical History - Family Member Mother History Unknown: Yes Ethnicity: Non- Living Status: Still Living Hx Family Cancer: No Hx Family Coronary Artery Disease: No Hx Family Congestive Heart Failure: No Hx Family Hypertension: No Hx Family Stroke: No Hx Family Diabetes: No Hx Family Seizures: No Hx Family Dementia: No Hx Family AIDS: No Hx Family HIV: No Hx Family COPD: No Hx Family Hepatitis: No Hx Family Psychiatric Problems: No Hx Family Tuberculosis: No ED Physical Exam - Physical Examination General/Constitutional: Awake, Well-developed, well-nourished, Alert, No distress, GCS 15, Non-toxic appearing, Ambulatory Head: Atraumatic Eyes: Lids, conjuctiva normal, PERRL, EOMI Skin: Nl inspection, No rash, No skin lesions, No ecchymosis, Well hydrated, No lymphadenopathy ENMT: External ears, nose nl, Nasal exam nl, Lips, teeth, gums nl Neck: Nontender, Full ROM w/o pain, No JVD, No nuchal rigidity, No bruit, No mass, No stridor Respiratory: Nl effort/Exclusion, Clear to Auscultation, No Wheeze/Rhonchi/Rales Cardio Vascular: RRR, No murmur, gallop, rubs, NL S1 S2 GI: No tenderness/rebounding/guarding, No organomegaly, No hernia, Normal BS's, Nondistended, No mass/bruits, No McBurney tenderness : No CVA tenderness Extremities: No tenderness or effusion, Full ROM, normal strength in all extremities, No edema, Normal digits & nails Neuro/Psych: Alert/oriented, DTR's symmetric, Normal sensory exam, Normal motor strength, Judgement/insight normal, Mood normal, Normal gait, No focal deficits Misc: Normal back, No paraspinal tenderness ED Labs/Radiology/EKG Results - Lab Results Results: Laboratory Tests 02/23/19 22:54 POC Glucose 582 H* ED Assessment - Assessment General Assessment: hyperglycemia ED Septic Shock - . Is Septic Shock (SBP<90, OR Lactate>4 mmol\L) present?: No - <6hrs of presentation: Vital Signs: Vital Signs - 8 hr 02/23/19 22:50 Temp 98.1 F HR 111 RR 18 BP 146/74 O2 Sat % 97 ED Reassessment (Disposition) - Reassessment Reassessment:: hyperglycemia - Diagnosis Diagnosis:: hyperglycemia - Patient Disposition Discharge/Transfer:: Home Condition at Disposition:: Stable
== END 2019-02-24 04:55 | disposition home or self-care (01) ==
LOC: ER 22:44
DX: E11.65 Type 2 diabetes mellitus with hyperglycemia (principal); Z79.4 Long term (current) use of insulin
CPT/HCPCS: 82948-90; Z7502

== ENCOUNTER 2019-02-28 14:10 | Emergency (ER) | payer MEDICAID ==
[2019-02-28] MEDS ORDERED: Sodium Chloride 0.9% 1,000 ML IV ONE (14:12)
--- NOTE | 2019-02-28 17:12 | ED Physician Chart ---
ED Chief Complaint/HPI - Patient Information Date Seen:: 02/28/19 Time Seen:: 14:30 Chief Complaint:: High Blood Sugar History of Present Illness:: pt is non-compliant with his medications; pt denies any s/s; pt denies trauma, LOC, ALOC, AMS, decreased activity, visual or gait changes, weakness, dizziness , paresthesias, vertigo, H/As, S/T, E/As, neck pain, C/P, cough, SOB, Abd. 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; Allergies:: Allergies Allergy/AdvReac Type Severity Reaction Status Date / Time No Known Allergies Allergy Verified 02/19/19 04:39 Vitals:: Vital Signs - 8 hr 02/28/19 14:37 Temp 98.9 F HR 124 RR 16 BP 134/89 O2 Sat % 96 Historian:: Patient Review:: Nurse's Note Reviewed, Old Chart Reviewed ED Review of Systems - Review of Systems General/Constitutional: No fever, No chills, No weight loss, No weakness, No diaphoresis, No edema, No loss of appetite Skin: No skin lesions, No rash, No bruising Head: No headache, No light-headedness Eyes: No loss of vision, No pain, No diplopia ENT: No earache, No nasal drainage, No sore throat, No tinnitus Neck: No neck pain, No swelling, No thyromegaly, No stiffness, No mass noted Cardio Vascular: No chest pain, No palpitations, No PND, No orthopnea, No edema Pulmonary: No SOB, No cough, No sputum, No wheezing GI: No nausea, No vomiting, No diarrhea, No pain, No melena, No hematochezia, No constipation, No hematemesis G/U: No dysuria, No frequency, No hematuria, No nacturia Musculoskeletal: No bone or joint pain, No back pain, No muscle pain Endocrine: No polyuria, No polydipsia Psychiatric: No prior psych history, No depression, No anxiety, No suicidal ideation, No homicidal ideation, No auditory hallucination, No visual hallucination Hematopoietic: No bruising, No lymphadenopathy Allergic/Immuno: No urticaria, No angioedema Neurological: No syncope, No focal symptoms, No weakness, No paresthesia, No headache, No seizure, No dizziness, No confusion, No vertigo ED Past Medical History - Past Medical History Obtainable: Yes Past Medical History: HTN, DM Family History: Diabetes Melitus, HTN Social History: Non Smoker, No Alcohol, No Drug Use, Single, Homeless Surgical History: None Psychiatricy History: None Medication: Reviewed Family Medical History - Family Member Mother History Unknown: Yes Ethnicity: Non- Living Status: Still Living Hx Family Cancer: No Hx Family Coronary Artery Disease: No Hx Family Congestive Heart Failure: No Hx Family Hypertension: No Hx Family Stroke: No Hx Family Diabetes: No Hx Family Seizures: No Hx Family Dementia: No Hx Family AIDS: No Hx Family HIV: No Hx Family COPD: No Hx Family Hepatitis: No Hx Family Psychiatric Problems: No Hx Family Tuberculosis: No ED Physical Exam - Physical Examination General/Constitutional: Awake, Well-developed, well-nourished, Alert, No distress, GCS 15, Non-toxic appearing, Ambulatory Head: Atraumatic Eyes: Lids, conjuctiva normal, PERRL, EOMI Other Eyes comments:: PERRLA; Fundi: benign; EOMs: WNL Skin: Nl inspection, No rash, No skin lesions, No ecchymosis, Well hydrated, No lymphadenopathy ENMT: External ears, nose nl, TM canals nl, Nasal exam nl, Lips, teeth, gums nl , Oropharynx nl, Tonsils nl Other ENMT comments:: TMJs: WNL Neck: Nontender, Full ROM w/o pain, No JVD, No nuchal rigidity, No bruit, No mass, No stridor Other Neck comments:: supple; no meningeal signs; no cervical tenderness; no bruits Respiratory: Nl effort/Exclusion, Clear to Auscultation, No Wheeze/Rhonchi/Rales Cardio Vascular: RRR, No murmur, gallop, rubs, NL S1 S2, Carotid/Femoral/Distal pulses equal bilaterally GI: No tenderness/rebounding/guarding, No organomegaly, No hernia, Normal BS's, Nondistended, No mass/bruits, No McBurney tenderness, Rectum exam nl Other GI comments:: no pulsatile masses : No CVA tenderness Extremities: No tenderness or effusion, Full ROM, normal strength in all extremities, No edema, Normal digits & nails Neuro/Psych: Alert/oriented, DTR's symmetric, Normal sensory exam, Normal motor strength, Judgement/insight normal, Mood normal, Normal gait, No focal deficits Other Neuro/Psych comments:: no focal signs Misc: Normal back, No paraspinal tenderness ED Labs/Radiology/EKG Results - Lab Results Comments:: deferred by pt - Radiology Results Comments:: deferred by pt - EKG Interpretations Comments:: deferred by pt ED Septic Shock - . Is Septic Shock (SBP<90, OR Lactate>4 mmol\L) present?: No - <6hrs of presentation: Vital Signs: Vital Signs - 8 hr 02/28/19 14:37 Temp 98.9 F HR 124 RR 16 BP 134/89 O2 Sat % 96 ED Reassessment (Disposition) - Reassessment Reassessment:: Final BP: 128/88; Pulse: 92; pt chose to sign out AMA; pt tolerated po fluids well in ER; pt is asymptomatic upon discharge/AMA Reassessment Condition:: Improved - Diagnosis Diagnosis:: Diabetes Mellitus; Hypertension; Tachycardia; Anxiety; Hyperglycemia - Aftercare/Follow up Instructions Aftercare/Follow-Up Instructions:: Counseled pt regarding lab results/diagnosis & need follow up, Refer to Discharge Instructions, Counseled pt & family regarding lab results/diagnosis & need follow up Notes:: Have BP and Blood Sugar re-checked by PMD Today - Patient Disposition Discharge/Transfer:: Against Medical Advice Condition at Disposition:: Stable, Improved (RTER prn if existing s/s reoccur and/or get worse and/or any other new s/s occur; ACIs given for all above Dx; Be compliant with all medications, ADA-ROBERTA Diet, and activity; Refer to Communication Lecturer/Clinical Education Academic Coordinator SANTOS; F/U with PMD Today or prn; RTER prn if concerned )
== END 2019-02-28 14:40 | disposition left against medical advice (07) ==
LOC: ER 14:10
DX: E11.65 Type 2 diabetes mellitus with hyperglycemia (principal); I10 Essential (primary) hypertension; F41.9 Anxiety disorder, unspecified; R00.0 Tachycardia, unspecified
CPT/HCPCS: Z7502